=== PATIENT | female | born 1930 | race Caucasian/White ===

== ENCOUNTER 2018-03-09 14:18 | Observation (INO) ==
[2018-03-09 14:53] LABS: Basophils % 0.3 %; Eosinophils # 0.1 K/mcL (0.0-0.6); Eosinophils % 3.2 %; Hematocrit 35.6 % (35.3-44.9); Immature Granulocytes % 0.6 % (0-4); Immature Platelets 2.3 % (1.1-6.1); Lymphocytes # 0.7 K/mcL (0.6-4.6); Lymphocytes % 21.1 %; Mean Corpuscular HGB Conc 30.9 g/dL (31.6-35.5); Mean Corpuscular Hemoglobin 32.5 pg (28.0-33.3); Mean Corpuscular Volume 105.3 fL (83.0-100.0); Mean Platelet Volume 10.4 fL (9.4-12.4); Monocytes # 0.2 K/mcL (0.0-1.3); Monocytes % 6.9 %; Neutrophils # 2.2 K/mcL (1.6-8.9); Red Blood Count 3.38 M/mcL (3.82-4.97); Red Cell Distribution Width 14.8 % (11.5-14.5); Segmented Neutrophils % 67.9 %
--- NOTE | 2018-03-09 15:00 | Emergency Department Note ---
Disposition Clinical Impression: Atypical chest pain Disposition: Admitted As Inpatient Condition: Fair Time of Disposition: 16:30 Chest Pain HPI - General Chief Complaint: ED Chest Pain Stated Complaint: Chest pain Time Seen by Provider: 03/09/18 14:27 Source: patient, family Mode of arrival: ambulatory Limitations: no limitations Vital Signs Reviewed: Yes Nursing Notes Reviewed: Yes - History of Present Illness HPI Narrative: 88-year-old female past medical history A fib, CAD, [place] x6 stents, diabetes, CHF , CKD, GERD presented to [facility] complaining of chest pain. She reported that the chest pain began on Monday after eating a sandwich. She describes it as a dull pain in the center of her chest that is not radiating. It is exacerbated by eating and swallowing liquids, it is intermittent lasting up to 15 minutes after eating or just when it randomly occurs. She went to [facility] [place] and was admitted for observation overnight then discharged the next day and told that she had inflammation. The pain has continued to worsen and not improve. She has had shortness of breath. She denies fever, chills, trauma, abdominal pain, nausea, vomiting, change in vision , melena, diarrhea, hematechezia. She denied smoking, drinking, drug use. She has not had an EGD. She is up today on colonoscopy. Severity scale (1-10): 6 - Related Data Home Medications Medication Instructions Recorded Confirmed Atorvastatin [Lipitor] 40 mg PO HS 01/25/16 03/09/18 Carvedilol [Coreg] 25 mg PO BID 01/25/16 03/09/18 Clopidogrel [Plavix] 75 mg PO DAILY 01/25/16 03/09/18 Glimepiride [Amaryl] 1 mg PO DAILY 01/25/16 03/09/18 Isosorbide MONOnitrate [Isosorbide 120 mg PO DAILY 01/25/16 03/09/18 Mononitrate ER] Omeprazole [PriLOSEC] 20 mg PO DAILY 01/25/16 03/09/18 Potassium Chloride [Klor-Con] 20 meq PO DAILY 01/25/16 03/09/18 SitaGLIPtin [Januvia] 100 mg PO DAILY 01/25/16 03/09/18 Aspirin [Lo-Dose Aspirin EC] 81 mg PO QAM 11/18/16 06/08/18 HYDROcodone/Acet 5/325 mg [[place] 1 tab PO Q6H PRN 08/19/16 03/09/18 5-325 mg] Digoxin [Lanoxin] 0.125 mg PO Q48H 06/19/17 03/09/18 Previous Rx's Medication Instructions Recorded Folic Acid 1 mg PO DAILY #30 tablet 10/25/16 Torsemide [Demadex] 40 mg PO DAILY 365 Days tablet 11/24/16 Cyanocobalamin (B-12) [Vitamin B12] 1,000 mcg PO DAILY #90 tablet 11/03/17 Allergies Allergy/AdvReac Type Severity Reaction Status Date / Time cephalexin [From Keflex] AdvReac See Verified 03/06/18 10:32 Comments Constitutional: Denies: fever, chills Cardiovascular: Reports: chest pain Respiratory: Reports: dyspnea. 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 Absent: tenderness, rash - Respiratory Respiratory exam: Present: other (Rales b/l). Absent: respiratory distress - Cardiovascular Cardiovascular exam: Present: irregular rhythm - Abdominal Exam Abdominal exam: Present: soft, Non-Tender, normal bowel sounds - Expanded Lower Extremity Exam Lower leg exam: Present: tenderness, swelling. Absent: erythema - Back Exam Back exam: Present: normal inspection - Neurological Exam Neurological exam: Present: alert, oriented X3 - Psychiatric Psychiatric exam: Present: normal affect, normal mood - Skin Skin exam: Present: dry, intact Course Course Narrative: 88-year-old female past medical history A fib, CAD, AR x6 stents, diabetes, CHF , CKD, GERD presented to [facility] complaining of chest pain. It is exacerbated by eating food and swallowing liquids. Pain is located in the center for chest without radiation. It is intermittent and lasts up to 15 minutes. The dull chest pain kept her up all night long and she was unable to sleep. Admits shortness of breath. Denied fever, chills, trauma , wheezing, cough, abdominal pain with nausea, vomiting, melena. Differential includes ACS, CHF exacerbation, pneumonia, dysphagia. Symptoms are likely not anginal. Border CBC, BMP, hepatic panel, lipase, EKG, troponin, chest x-ray. - Reevaluation(s) Reevaluation #1: The patient reports that her chest pain has resolved. Her CBC, BMP, troponin or unremarkable. Her hemoglobin and creatinine is at baseline. Time: 16:07 Vital Signs Temperature 97.9 F 03/09/18 14:26 Pulse Rate 85 03/09/18 14:26 Respiratory Rate 16 03/09/18 14:26 Blood Pressure 115/66 03/09/18 14:26 O2 Sat by Pulse Oximetry 95 03/09/18 14:26 Temperature 97.9 F 03/09/18 17:15 Pulse Rate 75 03/09/18 17:15 Respiratory Rate 20 03/09/18 17:15 Blood Pressure 131/79 03/09/18 17:15 O2 Sat by Pulse Oximetry 97 03/09/18 17:15 Oxygen Delivery Oxygen Delivery Room Air Chest Pain - MDM Narrative Medical decision making narrative: 88-year-old female past medical history A fib, CAD, AR x6 stents, diabetes, CHF , CKD, GERD presented to [facility] complaining of chest pain. She reported that the chest pain began on Monday after eating a sandwich. She describes it as a dull pain in the center of her chest that is not radiating. It is exacerbated by eating and swallowing liquids, it is intermittent lasting up to 15 minutes after eating or just when it randomly occurs. She went to [facility] [place] and was admitted for observation overnight then discharged the next day and told that she had inflammation. The pain has continued to worsen and not improve. She has had shortness of breath. She denies fever, chills, trauma, abdominal pain, nausea, vomiting, change in vision , melena, diarrhea, hematechezia. She has not had an EGD. She is up today on colonoscopy. The chest pain is non-anginal and is more likely dysphagia. We considered pneumonia, ACS, pancreatitis, cholecystitis. However due to the following lab work those diagnosis were less likely. EKG demonstrated atrial fibrillation with no acute ischemia. Troponin, BMP, hepatic panel, lipase unremarkable. CKD and anemia is at baseline. Chest x-ray demonstrated small bilateral pleural effusion. The patient was given nitro and Lasix. Patient was hemodynamically stable and afebrile. The hospitalist accepted admission. Dr. Connell of general surgery was consulted about possible EGD and he requested a CT chest be ordered. The patient is alert and oriented in is agreeable to admission. She stated a clear understanding of the treatment and plan. - Differential Diagnosis Likely: stable angina, unstable angina pectoris, atypical chest pain, chest pain , biliary colic - Medical Records Medical records reviewed: Yes I reviewed the patient's medical records. - Lab Data Lab results reviewed: Yes I reviewed the patient's lab results. Result diagrams: 03/09/18 15:00 03/09/18 15:00 - Radiology Data Chest X-Ray 03/09/18 14:34 IMPRESSION: Cardiomegaly with progressing left effusion and stable small right pleural effusion. D/ / 03/09/2018 15:05:02 Tano Truong MD / Karen Wagner Interpreting Provider: Tano Truong MD - EKG Data EKG attestation: Yes I reviewed and interpreted this EKG. EKG results narrative: EKG demonstrated atrial fibrillation, normal axis, no acute ST changes. QRS 91, QT/QTC 360/409 Heart Score - Score History: Slightly Suspicious EKG: Normal Age: Greater than 65 Risk Factors: Equal/Greater than 3 risk factor or history of atherosclerotic disease Troponin: Less than normal limit HEART Score Total: 4 Critical Care Time Critical Care Time: No
[2018-03-09 15:02] LABS: INR 1.2; Prothrombin Time 13.3 Seconds (9.4-12.1)
[2018-03-09 15:05] LABS: Activated Partial Thrombo Time 32.9 Seconds (26.0-36.0)
[2018-03-09 15:05] LABS: Platelet Count 97 K/mcL (140-400)
[2018-03-09] MEDS ORDERED: Aspirin 81 MG TAB.CHEW PO ONE (15:10)
[2018-03-09 15:11] LABS: BUN/Creatinine Ratio 18 (6-26); Blood Urea Nitrogen 23 mg/dL (8-23); Calcium 9.6 mg/dL (8.6-10.3); Carbon Dioxide 29 mEq/L (23-29); Chloride 104 mEq/L (98-107); Digoxin 0.5 ng/mL (0.8-2.0); Glucose 198 mg/dL (70-105); Osmolality,Calculated 299 (280-300); Potassium 4.2 mEq/L (3.5-5.1); Sodium 140 mEq/L (136-145); eGFR For African Americans 47 (> 60); eGFR For Non-African Americans 39 (> 60)
[2018-03-09] MEDS ORDERED: Furosemide 20 MG/2 ML VIAL IVP ONE (15:12)
[2018-03-09] MEDS ORDERED: Nitroglycerin 0.4 MG TAB.SUBL SL ONE (15:12)
[2018-03-09 15:19] LABS: Troponin I < 0.03 ng/mL (< 0.04)
[2018-03-09 15:28] LABS: Alanine Aminotransferase 9 Units/L (7-52); Albumin 3.9 g/dL (3.5-5.7); Albumin/Globulin Ratio 1.6 (1.1-2.2); Alkaline Phosphatase 83 Units/L (34-104); Aspartate Amino Transferase 14 Units/L (13-39); Bilirubin,Direct 0.1 mg/dL (0.0-0.2); Bilirubin,Indirect 0.6 mg/dL (0.0-1.2); Bilirubin,Total 0.7 mg/dL (0.3-1.0); Globulin 2.5 g/dL (2.4-3.5); Lipase 17 Units/L (11-82); Total Protein 6.4 g/dL (6.4-8.9)
[2018-03-09] MEDS ORDERED: Ondansetron 4 MG/2 ML VIAL IVP PRN (17:20)
[2018-03-09] MEDS ORDERED: *HR* Promethazine 25 MG/ML VIAL IVP PRN (17:20)
[2018-03-09] MEDS ORDERED: *HR* HYDROcodone/Acet 5/325 mg TABLET PO PRN (17:20)
[2018-03-09] MEDS ORDERED: Naloxone 0.4 MG/ML INJ IVP PRN (17:20)
[2018-03-09] MEDS ORDERED: Acetaminophen 325 MG TABLET PO PRN (17:20)
[2018-03-09] MEDS ORDERED: *HR* Digoxin 0.125 MG TABLET PO SCH (17:30)
--- NOTE | 2018-03-09 17:32 | Internal Med History&Physical ---
Date of Encounter: 03/09/18 Time of Encounter: 16:20 Internal Medicine - H&P: HPI Chief complaint: Chest tightness, dysphagia Admitted From: Emergency Dept Plans for Post Hospital Care: Home History of present illness: Ms. Kang is a 88 year old femalepast medical history of chronic A fib, CAD, [place] x6 stents, diabetes, Systolic CHF, CKD-3, and GERD pt presented to ER complaining of chest tightness since y/d and difficulty to sallow. She reported that the chest pain began after eating a sandwich. She describes it as a dull pain in the center of her chest that is not radiating. It is exacerbated by eating and swallowing liquids, it is intermittent lasting up to 15 minutes after eating or just when it randomly occurs. She went to [facility] and was admitted for observation overnight then discharged the next day and told that she had inflammation. The pain has continued to worsen and not improve. She also c/o shortness of breath and worsening b/l LE edema. Her chest x-ray showed increasing left pleural effusion. She denies fever, chills, trauma, abdominal pain, nausea, vomiting, change in vision, melena, diarrhea, hematechezia. She never had an EGD Past Med Surg Social Fam HX - Past Medical History Medical history: atrial fibrillation, CHF, diabetes, hyperlipidemia, hypertension, myocardial infarction Psychiatric history: anxiety - Past Surgical History Surgical History: angioplasty/stent, cholecystectomy, hysterectomy, other Additional surgical history: Back surgery. Cardiac Stents x 6 - Social History Smoking Status: Never smoker Smokeless Tobacco Status: No Alcohol use: none Drug use: none - Family History Sister Adopted: No Family Member Ethnicity: Non- Living Status: Still Living Hx Family Cardiac Disorders: Yes Hx Family Respiratory Disorders: No Hx Family Cancer: No Hx Family GI Disorders: No Hx Family Endocrine Disorder: No Hx Family Neuromuscular Disorders: No Hx Family Neurologic Disorders: No Hx Family HEENT Disorders: No Hx Family Autoimmune Disorders: No Internal Medicine - H&P: Meds Atorvastatin [Lipitor] 40 mg PO HS 01/25/16 [History] Carvedilol [Coreg] 25 mg PO BID 01/25/16 [History] Clopidogrel [Plavix] 75 mg PO DAILY 01/25/16 [History] Glimepiride [Amaryl] 1 mg PO DAILY 04/25/16 [History] Isosorbide MONOnitrate [Isosorbide Mononitrate ER] 120 mg PO DAILY 01/25/16 [ History] Omeprazole [PriLOSEC] 20 mg PO DAILY 01/25/16 [History] Potassium Chloride [Klor-Con] 20 meq PO DAILY 01/25/16 [History] SitaGLIPtin [Januvia] 100 mg PO DAILY 01/25/16 [History] Aspirin [Lo-Dose Aspirin EC] 81 mg PO QAM 08/19/16 [History] HYDROcodone/Acet 5/325 mg [[place] 5-325 mg] 1 tab PO Q6H PRN 08/19/16 [History] Folic Acid 1 mg PO DAILY #30 tablet 10/25/16 [Rx] Torsemide [Demadex] 40 mg PO DAILY 365 Days tablet 11/24/16 [Rx] Digoxin [Lanoxin] 0.125 mg PO Q48H 06/19/17 [History] Cyanocobalamin (B-12) [Vitamin B12] 1,000 mcg PO DAILY #90 tablet 11/03/17 [Rx] 3 Allergy/AdvReac Type Severity Reaction Status Date / Time cephalexin [From Keflex] AdvReac See Verified 03/06/18 10:32 Comments All Systems PM: A 10-system review of systems was performed and is negative for pertinent findings except as documented above in the HPI. Review of systems: All the systems are reviewed everything is benign except the systems and symptoms I mentioned in the history of present illness - Constitutional Vitals: Temp Pulse Resp BP Pulse Ox 97.9 F 75 20 131/79 97 03/09/18 17:15 03/09/18 17:15 03/09/18 17:15 03/09/18 17:15 03/09/18 17:15 General appearance: Present: cooperative, A&O X 3, no acute distress, answers questions appropriately - Head Head exam: Present: atraumatic, normal inspection - Neck Neck exam general surgery: Present: supple - Respiratory Respiratory exam: Present: decreased breath sounds. Absent: rales, respiratory distress, rhonchi, wheezes - Cardiovascular Cardiovascular exam: Present: irregular rhythm, +S1, +S2. Absent: tachycardia - GI/Abdominal GI/Abdominal exam: Present: normal bowel sounds, soft. Absent: distended, rebound, rigid, tenderness - Extremities Exam Extremities exam: Present: pedal edema (2-3+). Absent: calf tenderness, tenderness - Back Exam Back exam: Absent: CVA tenderness (L), CVA tenderness (R) - Neurological Exam Neurological exam: Present: alert, oriented X3 - Psychiatric Psychiatric exam: Present: normal affect, normal mood Internal Med - H&P Results - Labs CBC & Chem 7: 03/09/18 15:00 03/09/18 15:00 - Impressions ITS Impressions Chest CT 03/09/18 16:15 IMPRESSION: Small left and very small right pleural effusions with mild adjacent airspace disease, likely atelectasis. Bronchial wall thickening, compatible with acute and/or chronic bronchitis. Enlargement all all the cardiac chambers. Small pericardial effusion. Small hiatal hernia. D/ / Darrick Vasquez MD / Darrick Vasquez MD Interpreting Provider: Darrick Vasquez MD - Assessment and plan (1) Acute on chronic systolic (congestive) heart failure Current Visit: Yes Status: Acute Assessment and plan: Her symptoms consistent with the mild systolic CHF exacerbation chest x-ray showing progressive left pleural effusion she does have severe bilateral lower extremity edema started on IV Lasix 20 b.i.d. continue close monitoring reviewed her Echo from 07/2017 showed EF 40% resumed all her home medications (2) Dysphagia Current Visit: Yes Status: Acute Assessment and plan: Her symptoms suggesting of esophageal stricture she would get benefit with EGD surgeon Dr. Connell was already consulted by ER he requested for CT of abdomen NPO after midnight Qualifiers: Dysphagia type: oropharyngeal phase Qualified Code(s): R13.12 - Dysphagia, oropharyngeal phase (3) Atypical chest pain Current Visit: Yes Status: Acute Assessment and plan: Her chest pain seems to most likely due to CHF exacerbation as well as with the dysphagia will place on the burning supervisor check serial troponin so far negative troponin no acute ischemic changes noticed on EKG continue aspirin, Plavix and beta daryn (4) Lower extremity edema Current Visit: No Status: Acute Assessment and plan: Mostly due to CHF on IV diuresis (5) Atrial fibrillation Current Visit: No Status: Chronic Assessment and plan: Rate controlled with the coreg and digoxin Qualifiers: Atrial fibrillation type: chronic Qualified Code(s): I48.2 - Chronic atrial fibrillation (6) CKD (chronic kidney disease) stage 3, GFR 30-59 ml/min Current Visit: No Status: Chronic Assessment and plan: Stable and baseline (7) DM type 2 (diabetes mellitus, type 2) Current Visit: No Status: Chronic Assessment and plan: ADA diet on insulin sliding scale Qualifiers: Diabetes mellitus complication status: with kidney complications Diabetes mellitus complication detail: with chronic kidney disease Chronic kidney disease stage: stage 3 (moderate) Qualified Code(s): E11.22 - Type 2 diabetes mellitus with diabetic chronic kidney disease; N18.3 - Chronic kidney disease, stage 3 (moderate) (8) Pancytopenia Current Visit: No Status: Chronic Assessment and plan: Due to MDS stable numbers (9) MDS (myelodysplastic syndrome) Current Visit: No Status: Suspected - Time Spent With Patient Total time spent is greater than 50% in coordination of care (as documented) at patient's floor/unit and/or counseling patient:
--- NOTE | 2018-03-09 17:56 | General Surgery Consult Note ---
Date of Encounter: 03/09/18 Time of Encounter: 17:55 Assessment and Plan (1) Odynophagia Current Visit: Yes Status: Acute I explained to the patient given her overall symptoms I think it would be reasonable to consider performing an EGD tomorrow with MAC. MAC is requested due to the patient's current medications and comorbidities. The patient agrees to the above plan. History of Present Illness Consult date: 03/09/18 Reason for consult: other (Pain with swallowing) Requesting physician: Elly Bravo History of present illness: The patient is an 88 year old female with a past medical history significant for diabetes mellitus, coronary artery disease, CHF, myocardial infarction, and hypertension who states that she has been having pain with swallowing since Monday. She states that when she was trying to swallow water she started having this similar chest pain/discomfort. She states that food also cause this pain episodic in nature. She denies any nausea or vomiting and does have a history of heartburn but states that this is not heartburn related symptoms. She is on medications for heartburn/reflux and states that the medication does relieve her symptoms. Because of her continued discomfort she presented to [facility] for further evaluation. Colonoscopy in the past but has never had an EGD. Past Med Surg Social Fam HX - Past Medical History Medical history: atrial fibrillation, CHF, diabetes, hyperlipidemia, hypertension, myocardial infarction Psychiatric history: anxiety - Past Surgical History Surgical History: angioplasty/stent, cholecystectomy, hysterectomy, other Additional surgical history: Back surgery. Cardiac Stents x 6 - Social History Smoking Status: Never smoker Smokeless Tobacco Status: No Alcohol use: none Drug use: none - Family History Sister Adopted: No Family Member Ethnicity: Non- Living Status: Still Living Hx Family Cardiac Disorders: Yes Hx Family Respiratory Disorders: No Hx Family Cancer: No Hx Family GI Disorders: No Hx Family Endocrine Disorder: No Hx Family Neuromuscular Disorders: No Hx Family Neurologic Disorders: No Hx Family HEENT Disorders: No Hx Family Autoimmune Disorders: No Medications and Allergies Atorvastatin [Lipitor] 40 mg PO HS 01/25/16 [History] Carvedilol [Coreg] 25 mg PO BID 01/25/16 [History] Clopidogrel [Plavix] 75 mg PO DAILY 01/25/16 [History] Glimepiride [Amaryl] 1 mg PO DAILY 01/25/16 [History] Isosorbide MONOnitrate [Isosorbide Mononitrate ER] 120 mg PO DAILY 01/25/16 [ History] Omeprazole [PriLOSEC] 20 mg PO DAILY 01/25/16 [History] Potassium Chloride [Klor-Con] 20 meq PO DAILY 01/25/16 [History] SitaGLIPtin [Januvia] 100 mg PO DAILY 01/25/16 [History] Aspirin [Lo-Dose Aspirin EC] 81 mg PO QAM 08/19/16 [History] HYDROcodone/Acet 5/325 mg [[place] 5-325 mg] 1 tab PO Q6H PRN 08/19/16 [History] Folic Acid 1 mg PO DAILY #30 tablet 10/25/16 [Rx] Torsemide [Demadex] 40 mg PO DAILY 365 Days tablet 11/24/16 [Rx] Digoxin [Lanoxin] 0.125 mg PO Q48H 06/19/17 [History] Cyanocobalamin (B-12) [Vitamin B12] 1,000 mcg PO DAILY #90 tablet 11/03/17 [Rx] 3 Allergy/AdvReac Type Severity Reaction Status Date / Time cephalexin [From Keflex] AdvReac See Verified 03/06/18 10:32 Comments Review of Systems All systems PM: The remainder of the systems were reviewed and are negative General Surgery Exam Initial Vital Signs Temp Pulse Resp BP Pulse Ox 97.9 F 85 16 115/66 95 03/09/18 14:26 03/09/18 14:26 03/09/18 14:26 03/09/18 14:03/09/18 14:26 - General physical appearance well nourished, no distress - Respiratory normal expansion, normal respiratory effort, clear to percussion - Cardiovascular Cardiovascular exam: Present: RRR, no murmurs/rubs/gallops - Abdomen Abdomen general surgery: Present: bowel sounds present, soft, non tender - Neurologic Present: CN 2-12 grossly intact Exam Initial Vital Signs Temp Pulse Resp BP Pulse Ox 97.9 F 85 16 115/66 95 03/09/18 14:26 03/09/18 14:26 03/09/18 14:26 03/09/18 14:26 03/09/18 14:26 Results - Labs 03/09/18 15:00 03/09/18 15:00 Abnormal lab results WBC 3.2 K/mcL (4.3-11.1) L D 03/09/18 15:00 RBC 3.38 M/mcL (3.82-4.97) L 03/09/18 15:00 Hgb 11.0 g/dL (11.5-15.4) L 03/09/18 15:00 MCV 105.3 fL (83.0-100.0) H 03/09/18 15:00 MCHC 30.9 g/dL (31.6-35.5) L 03/09/18 15:00 RDW 14.8 % (11.5-14.5) H 03/09/18 15:00 Plt Count 97 K/mcL (140-400) L 03/09/18 15:00 PT 13.3 Seconds (9.4-12.1) H 03/09/18 14:34 Creatinine 1.29 mg/dL (0.60-1.20) H 03/09/18 15:00 Est GFR ( Amer) 47 (> 60) L 03/09/18 15:00 Est GFR (Non-Af Amer) 39 (> 60) L 03/09/18 15:00 Glucose 198 mg/dL (70-105) H 03/09/18 15:00 B-Natriuretic Peptide 268 pg/mL (Less than 100) H 03/09/18 15:00 Digoxin 0.5 ng/mL (0.8-2.0) L 03/09/18 15:00 All other labs normal. Consult Discharge Plan - Plan Instructions: Chest Pain (ED) Referrals: Tangela Prieto, PHUONG [Primary Care Provider] -
--- NOTE | 2018-03-09 18:07 | Emergency Department Note ---
Disposition Clinical Impression: Atypical chest pain Disposition: Admitted As Inpatient Condition: Fair General Adult HPI - General Chief complaint: ED Chest Pain Stated complaint: Chest pain Time Seen by Provider: 03/09/18 14:27 Source: patient, family Mode of arrival: ambulatory Limitations: no limitations - History of Present Illness Pain Scale: 6 - Related Data Home Medications Medication Instructions Recorded Confirmed Atorvastatin [Lipitor] 40 mg PO HS 01/25/16 03/09/18 Carvedilol [Coreg] 25 mg PO BID 01/25/16 03/09/18 Clopidogrel [Plavix] 75 mg PO DAILY 01/25/16 03/09/18 Glimepiride [Amaryl] 1 mg PO DAILY 01/25/16 03/09/18 Isosorbide MONOnitrate [Isosorbide 120 mg PO DAILY 01/25/16 03/09/18 Mononitrate ER] Omeprazole [PriLOSEC] 20 mg PO DAILY 01/25/16 03/09/18 Potassium Chloride [Klor-Con] 20 meq PO DAILY 01/25/16 03/09/18 SitaGLIPtin [Januvia] 100 mg PO DAILY 01/25/16 03/09/18 Aspirin [Lo-Dose Aspirin EC] 81 mg PO QAM 08/19/16 03/09/18 HYDROcodone/Acet 5/325 mg [[place] 1 tab PO Q6H PRN 08/19/16 03/09/18 5-325 mg] Digoxin [Lanoxin] 0.125 mg PO Q48H 06/19/17 03/09/18 Previous Rx's Medication Instructions Recorded Folic Acid 1 mg PO DAILY #30 tablet 10/25/16 Torsemide [Demadex] 40 mg PO DAILY 365 Days tablet 11/24/16 Cyanocobalamin (B-12) [Vitamin B12] 1,000 mcg PO DAILY #90 tablet 11/03/17 Allergies Allergy/AdvReac Type Severity Reaction Status Date / Time cephalexin [From Keflex] AdvReac See Verified 03/06/18 10:32 Comments Constitutional: Denies: fever, chills Cardiovascular: Reports: chest pain Respiratory: Reports: dyspnea. Denies: cough, wheezes Gastrointestinal: Denies: abdominal pain, nausea, vomiting, melena Integumentary: Denies: rash Neurological: Denies: headache Past Medical History - Past Medical History Medical history: Reports: atrial fibrillation, CHF, diabetes, hyperlipidemia, hypertension, myocardial infarction Surgical history: Reports: angioplasty/stent, cholecystectomy, hysterectomy, other Psychiatric history: Reports: anxiety FAGOT MAKER history: Reports: no FAGOT MAKER history - Social History Smoking Status: Never smoker Smokeless Tobacco Status: No Alcohol use: Reports: none Drug use: Reports: none Physical Exam - General Limitations: no limitations General appearance: alert, in no apparent distress Course Vital Signs Temperature 97.9 F 03/09/18 14:26 Pulse Rate 85 03/09/18 14:26 Respiratory Rate 16 03/09/18 14:26 Blood Pressure 115/66 03/09/18 14:26 O2 Sat by Pulse Oximetry 95 03/09/18 14:26 Temperature 97.9 F 03/09/18 17:15 Pulse Rate 75 03/09/18 17:15 Respiratory Rate 20 03/09/18 17:15 Blood Pressure 131/79 03/09/18 17:15 O2 Sat by Pulse Oximetry 97 03/09/18 17:15 Oxygen Delivery Oxygen Delivery Room Air Medical Decision Making - Lab Data Result diagrams: 03/09/18 15:00 03/09/18 15:00 Lab Results 03/09/18 03/09/18 03/09/18 Range/Units 14:34 15:00 15:00 WBC 3.2 L D (4.3-11.1) K/mcL RBC 3.38 L (3.82-4.97) M/mcL Hgb 11.0 L (11.5-15.4) g/dL Hct 35.6 (35.3-44.9) % MCV 105.3 H (83.0-100.0) fL MCH 32.5 (28.0-33.3) pg MCHC 30.9 L (31.6-35.5) g/dL RDW 14.8 H (11.5-14.5) % Plt Count 97 L (140-400) K/mcL MPV 10.4 (9.4-12.4) fL Immature Gran % 0.6 (0-4) % Seg Neutrophils % 67.9 % Lymphocytes % 21.1 % Monocytes % 6.9 % Eosinophils % 3.2 % Basophils % 0.3 % Neutrophils # 2.2 (1.6-8.9) K/mcL Lymphocytes # 0.7 (0.6-4.6) K/mcL Monocytes # 0.2 (0.0-1.3) K/mcL Eosinophils # 0.1 (0.0-0.6) K/mcL Basophils # 0.0 (0.0-0.2) K/mcL Immature Plt Fraction 2.3 (1.1-6.1) % PT 13.3 H (9.4-12.1) Seconds INR 1.2 APTT 32.9 (26.0-36.0) Seconds Sodium 140 (136-145) mEq/L Potassium 4.2 (3.5-5.1) mEq/L Chloride 104 (98-107) mEq/L Carbon Dioxide 29 (23-29) mEq/L BUN 23 (8-23) mg/dL Creatinine 1.29 H (0.60-1.20) mg/dL Est GFR ( Amer) 47 L (> 60) Est GFR (Non-Af Amer) 39 L (> 60) BUN/Creatinine Ratio 18 (6-26) Glucose 198 H (70-105) mg/dL Calculated Osmolality 299 (280-300) Calcium 9.6 (8.6-10.3) mg/dL Total Bilirubin 0.7 (0.3-1.0) mg/dL Direct Bilirubin 0.1 (0.0-0.2) mg/dL Indirect Bilirubin 0.6 (0.0-1.2) mg/dL AST 14 (13-39) Units/L ALT 9 (7-52) Units/L Alkaline Phosphatase 83 (34-104) Units/L Troponin I < 0.03 (< 0.04) ng/mL B-Natriuretic Peptide (Less than 100) pg/mL Serum Total Protein 6.4 (6.4-8.9) g/dL Albumin 3.9 (3.5-5.7) g/dL Globulin 2.5 (2.4-3.5) g/dL Albumin/Globulin Ratio 1.6 (1.1-2.2) Lipase 17 (11-82) Units/L Digoxin 0.5 L (0.8-2.0) ng/mL 03/09/18 Range/Units 15:00 WBC (4.3-11.1) K/mcL RBC (3.82-4.97) M/mcL Hgb (11.5-15.4) g/dL Hct (35.3-44.9) % MCV (83.0-100.0) fL MCH (28.0-33.3) pg MCHC (31.6-35.5) g/dL RDW (11.5-14.5) % Plt Count (140-400) K/mcL MPV (9.4-12.4) fL Immature Gran % (0-4) % Seg Neutrophils % % Lymphocytes % % Monocytes % % Eosinophils % % Basophils % % Neutrophils # (1.6-8.9) K/mcL Lymphocytes # (0.6-4.6) K/mcL Monocytes # (0.0-1.3) K/mcL Eosinophils # (0.0-0.6) K/mcL Basophils # (0.0-0.2) K/mcL Immature Plt Fraction (1.1-6.1) % PT (9.4-12.1) Seconds INR APTT (26.0-36.0) Seconds Sodium (136-145) mEq/L Potassium (3.5-5.1) mEq/L Chloride (98-107) mEq/L Carbon Dioxide (23-29) mEq/L BUN (8-23) mg/dL Creatinine (0.60-1.20) mg/dL Est GFR ( Amer) (> 60) Est GFR (Non-Af Amer) (> 60) BUN/Creatinine Ratio (6-26) Glucose (70-105) mg/dL Calculated Osmolality (280-300) Calcium (8.6-10.3) mg/dL Total Bilirubin (0.3-1.0) mg/dL Direct Bilirubin (0.0-0.2) mg/dL Indirect Bilirubin (0.0-1.2) mg/dL AST (13-39) Units/L ALT (7-52) Units/L Alkaline Phosphatase (34-104) Units/L Troponin I (< 0.04) ng/mL B-Natriuretic Peptide 268 H (Less than 100) pg/mL Serum Total Protein (6.4-8.9) g/dL Albumin (3.5-5.7) g/dL Globulin (2.4-3.5) g/dL Albumin/Globulin Ratio (1.1-2.2) Lipase (11-82) Units/L Digoxin (0.8-2.0) ng/mL Attestation Statement - Attestation Attestation: I examined this patient and my medical decision-making was reviewed with the Resident Physician, Dr. Oliveira. I agree with the documented findings, disposition and treatment plan as described except to the extent set forth below. Patient is an 88-year-old white female with a history of atrial fibrillation, CAD with prior IA, cardiac stent 6, who presents to the emergency room today with reports of intermittent episodes of substernal chest pressure since Monday which began after eating a sandwich. Pain is been intermittent with no aggravating or alleviating factors Time and associated with shortness of breath. Most episodes last anywhere from 10-15 minutes and resolve spontaneously. Patient denies any diaphoresis, no nausea vomiting, no abdominal pain or flank pain. Patient was seen and evaluated an outlying facility and observed overnight for symptoms being told that this was due to inflammation. Patient states the symptoms are worsening instead of getting better and presented here with ongoing complaints. I agree with patient's physical exam findings as documented. Vital signs are stable on arrival patient's in no acute distress. Shows atrial fibrillation without acute ischemia. Rate controlled. Chest x-ray shows slightly increased left pleural effusion and trace right pleural effusion no others acute process seen. Laboratory evaluation shows a normal troponin mild elevation in BNP otherwise within normal limits. Considering patient's cardiac history I feel she would benefit from admission and serial enzymes as well as possible GI evaluation as the symptoms seem related to swallowing and food ingestion. Case was discussed with hospitalist who accepted patient for admission for further evaluation and management with consultation us agreed to see the patient for possible EGD. Patient is hemodynamically stable at this time will be admitted for further management
[2018-03-09] MEDS: Furosemide 20 MG/2 ML VIAL IVP SCH (21:34)
[2018-03-10 04:46] LABS: Basophils % 0.4 %; Eosinophils % 3.2 %; Mean Corpuscular Hemoglobin 32.4 pg (28.0-33.3); Red Cell Distribution Width 14.7 % (11.5-14.5)
[2018-03-10 04:47] LABS: Eosinophils # 0.1 K/mcL (0.0-0.6); Hematocrit 32.2 % (35.3-44.9); Hemoglobin 10.1 g/dL (11.5-15.4); Immature Granulocytes % 0.4 % (0-4); Immature Platelets 2.3 % (1.1-6.1); Lymphocytes # 0.9 K/mcL (0.6-4.6); Lymphocytes % 32.4 %; Mean Corpuscular HGB Conc 31.4 g/dL (31.6-35.5); Mean Corpuscular Volume 103.2 fL (83.0-100.0); Mean Platelet Volume 10.4 fL (9.4-12.4); Monocytes # 0.2 K/mcL (0.0-1.3); Monocytes % 7.6 %; Neutrophils # 1.6 K/mcL (1.6-8.9); Red Blood Count 3.12 M/mcL (3.82-4.97)
[2018-03-10 04:53] LABS: Platelet Count 89 K/mcL (140-400)
[2018-03-10 05:00] LABS: Troponin I < 0.03 ng/mL (< 0.04)
[2018-03-10 05:02] LABS: Alanine Aminotransferase 8 Units/L (7-52); Albumin 3.5 g/dL (3.5-5.7); Albumin/Globulin Ratio 1.5 (1.1-2.2); Alkaline Phosphatase 77 Units/L (34-104); Aspartate Amino Transferase 10 Units/L (13-39); BUN/Creatinine Ratio 19 (6-26); Bilirubin,Total 0.6 mg/dL (0.3-1.0); Blood Urea Nitrogen 24 mg/dL (8-23); Calcium 9.2 mg/dL (8.6-10.3); Carbon Dioxide 28 mEq/L (23-29); Chloride 106 mEq/L (98-107); Chol/HDL Ratio 2.8 (0-4.9); Cholesterol 108 mg/dL (< 200); Globulin 2.3 g/dL (2.4-3.5); Glucose 182 mg/dL (70-105); HDL Cholesterol 38 mg/dL (40-59); LDL Cholesterol,Calculated 48 mg/dL (0-99); Magnesium 1.9 mg/dL (1.6-2.6); Osmolality,Calculated 299 (280-300); Potassium 3.7 mEq/L (3.5-5.1); Sodium 140 mEq/L (136-145); Total Protein 5.8 g/dL (6.4-8.9); Triglycerides 109 mg/dL (< 150); eGFR For African Americans 49 (> 60); eGFR For Non-African Americans 40 (> 60)
--- NOTE | 2018-03-10 07:43 | Anesthesia Evaluation PreOp ---
Date of Encounter: 03/10/18 Time of Encounter: 07:41 - Past History Planned Operation: EGD Cardiac History: NE (remote multiple), CHF (systolic), HTN, Arrhythmia (chronic a-fib), Cardiac Stent (x6) Pulmonary History: Denies Any Significant HX PEST CONTROL SPECIALIST History: Other (anxiety) Other Medical History: Renal (CKD 3), Diabetes Type II, GERD, Other (dysphagia) Alcohol Use: none Drug use: none Medications and Allergies Atorvastatin [Lipitor] 40 mg PO HS 01/25/16 [History] Carvedilol [Coreg] 25 mg PO BID 01/25/16 [History] Clopidogrel [Plavix] 75 mg PO DAILY 01/25/16 [History] Glimepiride [Amaryl] 1 mg PO DAILY 01/25/16 [History] Isosorbide MONOnitrate [Isosorbide Mononitrate ER] 120 mg PO DAILY 01/25/16 [ History] Omeprazole [PriLOSEC] 20 mg PO DAILY 01/25/16 [History] Potassium Chloride [Klor-Con] 20 meq PO DAILY 01/25/16 [History] SitaGLIPtin [Januvia] 100 mg PO DAILY 01/25/16 [History] Aspirin [Lo-Dose Aspirin EC] 81 mg PO QAM 08/19/16 [History] HYDROcodone/Acet 5/325 mg [[place] 5-325 mg] 1 tab PO Q6H PRN 08/19/16 [History] Folic Acid 1 mg PO DAILY #30 tablet 10/25/16 [Rx] Torsemide [Demadex] 40 mg PO DAILY 365 Days tablet 11/24/16 [Rx] Digoxin [Lanoxin] 0.125 mg PO Q48H 06/19/17 [History] Cyanocobalamin (B-12) [Vitamin B12] 1,000 mcg PO DAILY #90 tablet 11/03/17 [Rx] 3 Allergy/AdvReac Type Severity Reaction Status Date / Time cephalexin [From Keflex] AdvReac See Verified 03/06/18 10:32 Comments - Meds/Allergy Pre-op Review Medications Reviewed: Yes Allergies Reviewed: Yes Beta Blockers on Current Med List: Yes If Beta Blockers taken, Date/Time (Last Dose taken): 6-8 at 2135hrs Anesthesia Results - Labs 03/10/18 04:17 03/10/18 04:17 - Imaging EKG: report reviewed (ATRIAL FIBRILLATION LOW QRS VOLTAGE IN EXTREMITY LEADS INFERIOR MYOCARDIAL INFARCTION, PROBABLY OLD ANTEROSEPTAL MYOCARDIAL INFARCTION , PROBABLY OLD) Additional studies: stress: Impression: Pharmacologic stress ECG is non diagnostic for ischemia due to baseline non-specific ST and T changes. Gated EF = 47%. Small sized, moderate intensity, fixed basal to mid inferolateral defect consistent with a prior infarct. Perfusion imaging was negative for ischemia. echo: Impressions: LVEF 45%. Normal LV chamber size. Mild concentric left ventricular hypertrophy. Indeterminate diastolic function. Normal right ventricular structure and function. Severely dilated left atrium. Severely dilated right atrium. Mild-moderate aortic regurgitation. Mild-moderate mitral regurgitation. Severe tricuspid regurgitation. Severe pulmonary hypertension. Estimated RVSP is 75 mmHg. Mild pulmonic regurgitation. Anesthesia Exam Selected Entries 03/10/18 05:07 Temperature 98.4 F Pulse Rate 74 Respiratory Rate 16 Blood Pressure 142/71 O2 Sat by Pulse Oximetry 96 Oxygen Delivery Method Room Air Weight: 65kg NPO (# of Hours): 8 - HEENT Pupil (Motor): EOMI Mallampati: II Teeth: Normal Oral Opening: Greater than 3 - PEST CONTROL SPECIALIST LOC: Oriented PEST CONTROL SPECIALIST Motor: Normal RUE, Normal LUE, Normal RLE, Normal LLE, Normal Face PEST CONTROL SPECIALIST Sensory: Normal: RUE, LUE, RLE, LLE, Face - Cardiac Rhythm: Irregular Murmur: None - Pulmonary Breath Sounds: bilateral Clear (decreased) Anesthesia Assess/Plan ASA Score: 4 (heart disease) Modified Navin Scale for Level of Consciousness: Cooperative, oriented, and tranquil Anesthetic Plan: MAC Monitoring Plan: Standard Monitors Recovery Plan: PACU (agrees to MAC)
[2018-03-10] MEDS ORDERED: *HR* PHENYLEPHRINE 1,000 MCG/10 ML SYRINGE IVP ONE (08:25)
[2018-03-10] MEDS ORDERED: Propofol 500 MG/50 ML INFUS..BTL ONE (08:28)
[2018-03-10] MEDS ORDERED: Folic Acid 1 MG TABLET PO SCH (09:00)
[2018-03-10] MEDS ORDERED: Isosorbide MONOnitrate (24 HR) 60 MG TAB.ER.24H PO SCH (09:00)
[2018-03-10] MEDS ORDERED: Aspirin Enteric Coated 81 MG Tablet PO SCH (09:00)
[2018-03-10] MEDS ORDERED: *HR* Digoxin 0.125 MG TABLET PO SCH (09:00)
[2018-03-10] MEDS ORDERED: Cyanocobalamin (B-12) 1,000 MCG TABLET PO SCH (09:00)
[2018-03-10] MEDS ORDERED: Ringers Solution, Lactated 1,000 ML IVC SCH ×2 (09:15→09:38)
--- NOTE | 2018-03-10 09:22 | Event Note ---
Date of Encounter: 03/10/18 Time of Encounter: 09:22 EGD performed. Noted fibrinous exudate at the level of the distal third of the esophagus. Biopsied and brushing obtained. OK to resume diet. Add carafate. Will make certain that patient has follow up as outpatient. Will sign off; thank you.
[2018-03-10] MEDS ORDERED: Naloxone 0.4 MG/ML INJ IVP PRN (09:38)
[2018-03-10] MEDS ORDERED: Acetaminophen 325 MG TABLET PO PRN (09:38)
[2018-03-10] MEDS ORDERED: *HR* Promethazine 25 MG/ML VIAL IVP PRN (09:38)
[2018-03-10] MEDS ORDERED: *HR* HYDROcodone/Acet 5/325 mg TABLET PO PRN (09:38)
[2018-03-10] MEDS ORDERED: Ondansetron 4 MG/2 ML VIAL IVP PRN (09:38)
--- NOTE | 2018-03-10 10:11 | Internal Med Progress Note ---
Date of Encounter: 03/10/18 Time of Encounter: 10:11 - Assessment and plan (1) Acute on chronic systolic (congestive) heart failure Current Visit: Yes Status: Acute Assessment and plan: - 880 ml yesterda LE edema improved, but JVP still up and exertional dyspnea Cont IV diuresis DC jacky-procedure IV fluids (2) Dysphagia Current Visit: Yes Status: Acute Assessment and plan: EGD: fibrinous exudate at the level of the distal third of the esophagus Biopsied and brushing pending Carafate for esophagitis Qualifiers: Dysphagia type: oropharyngeal phase Qualified Code(s): R13.12 - Dysphagia, oropharyngeal phase (3) Atrial fibrillation Current Visit: No Status: Chronic Assessment and plan: cot digoxin Qualifiers: Atrial fibrillation type: chronic Qualified Code(s): I48.2 - Chronic atrial fibrillation (4) CKD (chronic kidney disease) stage 3, GFR 30-59 ml/min Current Visit: No Status: Chronic Assessment and plan: monitor (5) CAD (coronary artery disease) Current Visit: Yes Status: Chronic Assessment and plan: stable cont home meds incl Plavix Qualifiers: Coronary Disease-Associated Artery/Lesion type: [place] artery [place] vs. transplanted heart: [place] heart Associated angina: without angina Qualified Code(s): I25.10 - Atherosclerotic heart disease of [place] coronary artery without angina pectoris (6) MDS (myelodysplastic syndrome) Current Visit: No Status: Suspected Assessment and plan: pancytopenia monitor - Time Spent With Patient Total time spent is greater than 50% in coordination of care (as documented) at patient's floor/unit and/or counseling patient: - Subjective Interval history: Exertional dyspnea, far from baseline Lower chest pain No n, v, headache, dizziness - Constitutional Vitals: Temp Pulse Resp BP Pulse Ox 98.8 F 87 18 161/80 98 03/10/18 08:50 03/10/18 08:50 03/10/18 08:50 03/10/18 08:50 03/10/18 08:50 General appearance: Present: cooperative, A&O X 3, no acute distress, answers questions appropriately - Head Head exam: Present: atraumatic, normocephalic - Eye Eye exam: Present: PERRL, conjuntiva pink, sclera anicteric Pupils: Present: PERRL - Neck Neck exam general surgery: Present: supple, trachea midline. Absent: nuchal rigidity - Respiratory Respiratory exam: Present: decreased breath sounds (at bases). Absent: accessory muscle use, rales, rhonchi, wheezes - Cardiovascular Cardiovascular exam: Present: JVD (15 cm H2O), RRR, +S1, +S2. Absent: diastolic murmur, gallop, rubs, systolic murmur - GI/Abdominal GI/Abdominal exam: Present: normal bowel sounds, soft, no peritoneal signs. Absent: distended, guarding, tenderness - Extremities Exam Extremities exam: Present: pedal edema (trace), warm, radial pulses palpable and symmetrical. Absent: cyanotic - Neurological Exam Neurological exam: Present: CN II-XII intact, oriented X3, no focal deficits. Absent: facial droop, speech deficit - Skin Skin exam: Present: dry, intact Internal Medicine: Result - Labs CBC & Chem 7: 03/10/18 04:17 03/10/18 04:17 Labs: Short CBC 03/10/18 Range/Units 04:17 WBC 2.8 L (4.3-11.1) K/mcL Hgb 10.1 L (11.5-15.4) g/dL Hct 32.2 L (35.3-44.9) % Plt Count 89 L (140-400) K/mcL Neutrophils # 1.6 (1.6-8.9) K/mcL BMP 03/10/18 04:17 Sodium 140 Potassium 3.7 Chloride 106 Carbon Dioxide 28 BUN 24 H Creatinine 1.26 H Glucose 182 H Calcium 9.2 Cardiac Enzymes 03/09/18 03/10/18 Range/Units 21:42 04:17 Troponin I < 0.03 < 0.03 (< 0.04) ng/mL Liver Function 03/10/18 Range/Units 04:17 Total Bilirubin 0.6 (0.3-1.0) mg/dL AST 10 L (13-39) Units/L ALT 8 (7-52) Units/L Alkaline Phosphatase 77 (34-104) Units/L Albumin 3.5 (3.5-5.7) g/dL - ABG Interpretation ABG results: PT/INR, D-dimer PT 13.3 Seconds (9.4-12.1) H 03/09/18 14:34 - Impressions Impressions Chest CT 03/09/18 16:15 IMPRESSION: Small left and very small right pleural effusions with mild adjacent airspace disease, likely atelectasis. Bronchial wall thickening, compatible with acute and/or chronic bronchitis. Enlargement all all the cardiac chambers. Small pericardial effusion. Small hiatal hernia. D/ / Darrick Vasquez MD / Darrick Vasquez MD Interpreting Provider: Darrick Vasquez MD Consult Discharge Plan - Plan Instructions: Chest Pain (ED) Referrals: Tangela Prieto CNP [Primary Care Provider] -
[2018-03-10] MEDS: Furosemide 20 MG/2 ML VIAL IVP SCH (17:12)
[2018-03-11] MEDS: Furosemide 20 MG/2 ML VIAL IVP SCH ×2 (00:36→09:19)
[2018-03-11 06:04] LABS: Hematocrit 34.8 % (35.3-44.9); Mean Corpuscular Volume 103.6 fL (83.0-100.0); Red Blood Count 3.36 M/mcL (3.82-4.97)
[2018-03-11 06:06] LABS: Hemoglobin 10.9 g/dL (11.5-15.4); Immature Platelets 2.3 % (1.1-6.1); Mean Corpuscular HGB Conc 31.3 g/dL (31.6-35.5); Mean Corpuscular Hemoglobin 32.4 pg (28.0-33.3); Red Cell Distribution Width 14.5 % (11.5-14.5)
[2018-03-11 06:21] LABS: BUN/Creatinine Ratio 17 (6-26); Blood Urea Nitrogen 18 mg/dL (8-23); Calcium 9.3 mg/dL (8.6-10.3); Carbon Dioxide 30 mEq/L (23-29); Chloride 106 mEq/L (98-107); Glucose 213 mg/dL (70-105); Magnesium 1.9 mg/dL (1.6-2.6); Osmolality,Calculated 300 (280-300); Potassium 3.6 mEq/L (3.5-5.1); Sodium 141 mEq/L (136-145); eGFR For African Americans > 60 (> 60); eGFR For Non-African Americans 50 (> 60)
[2018-03-11 07:30] VITALS: BP 148/81
[2018-03-11] MEDS ORDERED: Aspirin Enteric Coated 81 MG Tablet PO SCH (09:00)
[2018-03-11] MEDS ORDERED: Folic Acid 1 MG TABLET PO SCH (09:00)
[2018-03-11] MEDS ORDERED: Cyanocobalamin (B-12) 1,000 MCG TABLET PO SCH (09:00)
[2018-03-11] MEDS ORDERED: Isosorbide MONOnitrate (24 HR) 60 MG TAB.ER.24H PO SCH (09:00)
--- NOTE | 2018-03-11 10:10 | Discharge Summary ---
- NOTES TO OUTPATIENT PROVIDER Notes to Outpatient Provider: please check BMP in 1 week as lisinopril started ( has appt coming Monday). 30-day script given for Pilosec and Carafate, may need longer duration Orders not resulted at time of discharge: Pending orders 03/10/18 09:09 Surgical Pathology [PTH] Routine / EGD - esophageal biopsy Date of Encounter: 03/11/18 Time of Encounter: 10:08 - Discharge Diagnosis (1) Acute on chronic systolic (congestive) heart failure Priority: Secondary Status: Resolved (2) Dysphagia Priority: Primary Status: Chronic Qualifiers: Dysphagia type: oropharyngeal phase Qualified Code(s): R13.12 - Dysphagia, oropharyngeal phase (3) Atrial fibrillation Priority: Secondary Status: Chronic Qualifiers: Atrial fibrillation type: chronic Qualified Code(s): I48.2 - Chronic atrial fibrillation (4) CKD (chronic kidney disease) stage 3, GFR 30-59 ml/min Priority: Secondary Status: Chronic (5) CAD (coronary artery disease) Priority: Secondary Status: Chronic Qualifiers: Coronary Disease-Associated Artery/Lesion type: [place] artery [place] vs. transplanted heart: [place] heart Associated angina: without angina Qualified Code(s): I25.10 - Atherosclerotic heart disease of [place] coronary artery without angina pectoris (6) MDS (myelodysplastic syndrome) Priority: Secondary Status: Suspected Hospital course: 88W with chronic A fib, CAD, [place] x6 stents, diabetes, Systolic CHF, CKD-3, and GERD presented to ER due to chest tightness which started after eating a sandwich. Non-radiating, with dysphagia. She also had exertional dyspnea. # Chest pain - likely due to esophagitis - ACS ruled out with troponin, chest pain pain improved after EGD and Carafate. No n, v, abd pain on discharge day # Esophagitis: - EGD: fibrinous exudate at the level of the distal third of the esophagus - Prilosec increased to BID and Carafate started, 30-d supply prescribed for now # ADHF / HFrEF - She was volume up on exam, treated with IV lasix, and euvolemic on the day of discharge - TTE showed EF 30-35%, previously 40-45% in 2017; this was in the setting of acute illness and pain, jacky-procedure EGD - Torsemide continued on discharge - Lisinoprl started for HFrEF (not allergic to it), CKD but Cr 1.0 on discharge , check BMP in 1 week - She has appt with her manager statistical programming in 2 weeks, will discuss there regarding further work up, may need a MUGA once on GDMT Other medical problems remained stable on home medicines Discharge discussed with: patient - Time Spent with Patient Total time spent providing and/or coordinating discharge services: Greater than 30 minutes Specific discharge activities: Counseled about HFrEF, lsinopril, risk of angioedema, hyperkalemia, ERICA - Discharge Medications Prescriptions: Lisinopril [Zestril] 5 mg PO DAILY 30 Days #30 tablet Omeprazole [PriLOSEC] 20 mg PO BIDAC 30 Days #60 capsule. Sucralfate [Carafate] 1 gm PO QIDAC 30 Days #120 udc Home Medications: Atorvastatin [Lipitor] 40 mg PO HS 01/25/16 [History] Carvedilol [Coreg] 25 mg PO BID 01/25/16 [History] Clopidogrel [Plavix] 75 mg PO DAILY 01/25/16 [History] Glimepiride [Amaryl] 1 mg PO DAILY 01/25/16 [History] Isosorbide MONOnitrate [Isosorbide Mononitrate ER] 120 mg PO DAILY 01/25/16 [ History] Potassium Chloride [Klor-Con] 20 meq PO DAILY 01/25/16 [History] SitaGLIPtin [Januvia] 100 mg PO DAILY 01/25/16 [History] Aspirin [Lo-Dose Aspirin EC] 81 mg PO QAM 08/19/16 [History] HYDROcodone/Acet 5/325 mg [[place] 5-325 mg] 1 tab PO Q6H PRN 08/19/16 [History] Folic Acid 1 mg PO DAILY #30 tablet 10/25/16 [Rx] Torsemide [Demadex] 40 mg PO DAILY 365 Days tablet 11/24/16 [Rx] Digoxin [Lanoxin] 0.125 mg PO Q48H 06/19/17 [History] Cyanocobalamin (B-12) [Vitamin B12] 1,000 mcg PO DAILY #90 tablet 11/03/17 [Rx] Lisinopril [Zestril] 5 mg PO DAILY 30 Days #30 tablet 03/11/18 [Rx] Omeprazole [PriLOSEC] 20 mg PO BIDAC 30 Days #60 capsule. 03/11/18 [Rx] Sucralfate [Carafate] 1 gm PO QIDAC 30 Days #120 udc 03/11/18 [Rx] Allergies/Adverse Reactions: 3 Allergy/AdvReac Type Severity Reaction Status Date / Time cephalexin [From Keflex] AdvReac See Verified 03/06/18 10:32 Comments Date of admission: 03/09/18 15:54 Primary care physician: Tangela Prieto CNP Consults: 03/09/18 16:15 Consult to Surgery [CONS] Routine Consulting Provider: [facility] Reason for Consult: Chest pain/dysphagia Call Completed: Yes Discharging clinician: Piter Lugo Anticipated date of discharge: 03/11/18 - Constitutional Vitals: Temp Pulse Resp BP Pulse Ox 99.0 F 78 18 148/81 97 03/11/18 07:26 03/11/18 07:26 03/11/18 07:26 03/11/18 07:26 03/11/18 09:23 General appearance: Present: cooperative, A&O X 3, no acute distress, answers questions appropriately - Head Head exam: Present: atraumatic, normocephalic - Eye Eye exam: Present: PERRL, conjuntiva pink, sclera anicteric Pupils: Present: PERRL - Neck Neck exam general surgery: Present: supple, trachea midline. Absent: nuchal rigidity - Respiratory Respiratory exam: Present: CTAB. Absent: accessory muscle use, rales, rhonchi, wheezes - Cardiovascular Cardiovascular exam: Present: irregular rhythm, +S1, +S2. Absent: diastolic murmur, gallop, JVD, rubs, systolic murmur - GI/Abdominal GI/Abdominal exam: Present: normal bowel sounds, soft, no peritoneal signs. Absent: distended, tenderness - Extremities Exam Extremities exam: Present: warm, radial pulses palpable and symmetrical. Absent : calf tenderness, cyanotic, pedal edema - Neurological Exam Neurological exam: Present: CN II-XII intact, oriented X3, no focal deficits. Absent: facial droop, speech deficit - Skin Skin exam: Present: dry, intact - Patient Status Disposition: Home, Self-Care Condition: Fair Functional capacity at discharge: independent ambulation Overall status at discharge: patient is back to baseline - Discharge Instructions Instructions: Corrosive Esophagitis (DC), Lisinopril (By mouth) Follow Up With: Tangela Prieto CNP [Primary Care Provider] - - Diet and Activity Activity: increase activity as tolerated Diet: advance to your usual diet, diabetic diet, low salt diet, other (fluid restriciton 1500 ml per day)
--- NOTE | 2018-03-12 07:56 | Electrocardiograph Report ---
[address] [place] [address] Test Date: 2018-03-09 Pat Name: Jorge Kang Department: 102 Room: 3B66 Gender: F Workers Compensation Claims Specialist: Declan : [id number] Requested By: Sandro Wyman Order Number: [id number] Reading MD: Atif Russo Measurements Intervals [place] Rate: 91 P: [place]: 0 QRS: -4 QRSD: 91 T: 100 QT: 360 QTc: 409 Interpretive Statements ATRIAL FIBRILLATION INFERIOR MYOCARDIAL INFARCTION, PROBABLY OLD ANTEROSEPTAL MYOCARDIAL INFARCTION, PROBABLY OLD Electronically Signed On 03-12-2018 7:54:51 EDT by Atif Russo
[2018-03-12] MEDS ORDERED: *HR* Digoxin 0.125 MG TABLET PO SCH (09:00)
== END 2018-03-11 11:26 | disposition home or self-care (01) ==
LOC: 3BNU 14:18 → EMEROO 14:18 → 3BNU 16:51
PROVIDERS: ADMIT Family Medicine; ATTEND Family Medicine
PROC: ENDOEBX (2018-03-10 08:30)

== ENCOUNTER 2018-04-02 23:10 | Observation (INO) ==
[2018-04-03] MEDS ORDERED: Naloxone 0.4 MG/ML INJ IVP PRN (05:29)
[2018-04-03] MEDS ORDERED: *HR* HYDROcodone/Acet 5/325 mg TABLET PO PRN (05:30)
--- NOTE | 2018-04-03 05:32 | Internal Med History&Physical ---
Date of Encounter: 04/03/18 Time of Encounter: 05:31 Internal Medicine - H&P: HPI Chief complaint: Abdominal pain Admitted From: Hospital to Hospital Transfer Plans for Post Hospital Care: Home History of present illness: Ms. Kang is a 88 year old female with past medical history of CAD, hypertension, a fib, CHF, CKD, diabetes presented to [facility] as a transfer from [place] [facility] due to abdominal pain. Patient reported that she had been having abdominal pain for 5 days that is intermittently sharp and dull. The pain did not improve so she went to the ED. She has had associated increase in urinary frequency. She denied fever, chills, nausea, vomiting, chest pain, shortness of breath, dysuria, hematuria, diarrhea, constipation, melena, hematechezia. In [place] [facility] abdominal CT demonstrated findings concerning for rectosigmoid colitis and right hydronephrosis and pyelonephritis, bilateral renal lesions 1.1 cm with recommendation for renal ultrasound syntheses are larger than most renal cyst. She was given 2L IVF, IV Levaquin, IV Flagyl. Blood cultures were taken. She is a full code. Past Med Surg Social Fam HX - Past Medical History Medical history: atrial fibrillation, CHF, diabetes, hyperlipidemia, hypertension, myocardial infarction Psychiatric history: anxiety - Past Surgical History Surgical History: angioplasty/stent, cholecystectomy, hysterectomy, other Additional surgical history: Back surgery. Cardiac Stents x 6 - Social History Smoking Status: Never smoker Smokeless Tobacco Status: No Alcohol use: none Drug use: none - Family History Sister Adopted: No Family Member Ethnicity: Non- Living Status: Still Living Hx Family Cardiac Disorders: Yes Hx Family Respiratory Disorders: No Hx Family Cancer: No Hx Family GI Disorders: No Hx Family Endocrine Disorder: No Hx Family Neuromuscular Disorders: No Hx Family Neurologic Disorders: No Hx Family HEENT Disorders: No Hx Family Autoimmune Disorders: No Internal Medicine - H&P: Meds Atorvastatin [Lipitor] 40 mg PO HS 01/25/16 [History] Carvedilol [Coreg] 25 mg PO BID 01/25/16 [History] Clopidogrel [Plavix] 75 mg PO DAILY 01/25/16 [History] Glimepiride [Amaryl] 1 mg PO DAILY 01/25/16 [History] Isosorbide MONOnitrate [Isosorbide Mononitrate ER] 120 mg PO DAILY 01/25/16 [ History] Potassium Chloride [Klor-Con] 20 meq PO DAILY 01/25/16 [History] SitaGLIPtin [Januvia] 100 mg PO DAILY 01/25/16 [History] Aspirin [Lo-Dose Aspirin EC] 81 mg PO QAM 08/19/16 [History] HYDROcodone/Acet 5/325 mg [[place] 5-325 mg] 1 tab PO Q6H PRN 08/19/16 [History] Folic Acid 1 mg PO DAILY #30 tablet 10/25/16 [Rx] Torsemide [Demadex] 40 mg PO DAILY 365 Days tablet 11/24/16 [Rx] Digoxin [Lanoxin] 0.125 mg PO Q48H 06/19/17 [History] Cyanocobalamin (B-12) [Vitamin B12] 1,000 mcg PO DAILY #90 tablet 11/03/17 [Rx] Omeprazole [PriLOSEC] 20 mg PO BIDAC 30 Days #60 capsule. 03/11/18 [Rx] Sucralfate [Carafate] 1 gm PO QIDAC 30 Days #120 udc 03/11/18 [Rx] Lisinopril [Lisinopril] 1 tab ORAL RINSE DAILY 04/03/18 [History] 3 Allergy/AdvReac Type Severity Reaction Status Date / Time cephalexin [From Keflex] AdvReac See Verified 03/19/18 10:06 Comments All Systems PM: A 10-system review of systems was performed and is negative for pertinent findings except as documented above in the HPI. - Constitutional Constitutional: no chills, no fever(s) - EENT Eyes: no change in vision - Cardiovascular Cardiovascular ROS IM: no chest pain, no diaphoresis - Respiratory Respiratory: no cough, no dyspnea - Gastrointestinal Gastrointestinal: abdominal pain - Genitourinary Genitourinary: urinary frequency (Increased), urinary urgency, no dysuria, no hematuria - Musculoskeletal Musculoskeletal ROS IM: no arthralgias - Integumentary Integumentary IM: no erythema, no new lesions - Neurological Neurological ROS: no dizziness - Psychiatric Psychiatric: no confusion - Constitutional Vitals: Temp Pulse Resp BP Pulse Ox 100.2 F H 87 16 161/77 95 04/03/18 03:35 04/03/18 03:35 04/03/18 03:35 04/03/18 03:35 04/03/18 03:35 General appearance: Present: A&O X 3, pleasant, no acute distress - Head Head exam: Present: atraumatic, normal inspection - Eye Eye exam: Absent: conjunctival injection - Respiratory Respiratory exam: Present: CTAB. Absent: rales, rhonchi - Cardiovascular Cardiovascular exam: Present: irregular rhythm. Absent: systolic murmur - GI/Abdominal GI/Abdominal exam: Present: distended, hypoactive bowel sounds, soft, tenderness (LLQ, RLQ, suprapubic). Absent: firm, guarding, rigid - Expanded Lower Extremities Exam Lower Leg exam: Present: swelling (non pitting edema), tenderness. Absent: ecchymosis, erythema - Neurological Exam Neurological exam: Present: alert, oriented X3 - Psychiatric Psychiatric exam: Present: normal affect, normal mood - Skin Skin exam: Present: dry, intact - Assessment and plan (1) Cystitis Current Visit: Yes Status: Acute Assessment and plan: Patient likely have cystitis due to symptoms of increased urinary frequency, urgency. Denies hematuria, dysuria, fever, chills, diarrhea, constipation, melena. She has suprapubic tenderness. Unlikely to be colitis however due to imaging concerning for it will continue to treat for now. Abd/ pelvis CT demonstrating right hydronephrosis without obstructing renal stone, cystitis, pyelonephritis, rectosigmoid colitis. Bilateral renal cortical rounded lesions measuring 1.1 cm, recommended renal ultrasound to exclude solid lesion. WBC WNL Plan -IV Rocephin -IV Flagyl -blood culture pending -urine culture pending (2) Hydronephrosis, right Current Visit: Yes Status: Acute Assessment and plan: Right hydronephrosis and Bilateral renal lesions demonstrated by abdominal CT this is likely secondary to cystitis. Abd/ pelvis CT demonstrating right hydronephrosis without obstructing renal stone, cystitis, pyelonephritis, rectosigmoid colitis. Bilateral renal cortical rounded lesions measuring 1.1 cm, recommended renal ultrasound to exclude solid lesion. -Will order a renal ultrasound to evaluate the bilateral renal lesions (3) CAD (coronary artery disease) Current Visit: No Status: Chronic Assessment and plan: History of CAD with stents. Continue home medications Imdur, aspirin, carvedilol, Lipitor, Plavix. Holding lisinopril due to ERICA. Reduced ejection fraction congestive heart failure TTE 03/2018: EF 30-35%, severe pulmonary hypertension -continue medications, caution IV fluids. Patient received 2L IVF at [place] [facility]. Qualifiers: Coronary Disease-Associated Artery/Lesion type: [place] artery [place] vs. transplanted heart: [place] heart Associated angina: without angina Qualified Code(s): I25.10 - Atherosclerotic heart disease of [place] coronary artery without angina pectoris (4) Atrial fibrillation Current Visit: No Status: Chronic Assessment and plan: History of known atrial fibrillation. Heart rate stable continue home medications Qualifiers: Atrial fibrillation type: chronic Qualified Code(s): I48.2 - Chronic atrial fibrillation (5) Acute kidney injury Current Visit: Yes Status: Acute Assessment and plan: ERICA with creatinine 1.66 (baseline 1.2-1.3) -avoid nephrotoxic agents -patient received IV fluids -continue monitor creatinine (6) CKD (chronic kidney disease) stage 3, GFR 30-59 ml/min Current Visit: No Status: Chronic Assessment and plan: History of known CKD. -Avoid nephrotoxic agents -continue to monitor (7) DVT prophylaxis Current Visit: Yes Status: Acute Assessment and plan: Heparin SQ - Time Spent With Patient Total time spent is greater than 50% in coordination of care (as documented) at patient's floor/unit and/or counseling patient:
[2018-04-03] MEDS ORDERED: cefTRIAXone 1,000 MG in Water for inj. (sterile) 20 ML 10 ML IVP SCH (06:44)
[2018-04-03 07:05] LABS: Basophils % 0.2 %; Eosinophils % 0.2 %; Mean Corpuscular Volume 98.5 fL (83.0-100.0)
[2018-04-03 07:06] LABS: Hematocrit 32.3 % (35.3-44.9); Hemoglobin 10.5 g/dL (11.5-15.4); Immature Granulocytes % 0.5 % (0-4); Immature Platelets 3.5 % (1.1-6.1); Lymphocytes # 0.6 K/mcL (0.6-4.6); Lymphocytes % 13.4 %; Mean Corpuscular HGB Conc 32.5 g/dL (31.6-35.5); Mean Platelet Volume 10.4 fL (9.4-12.4); Monocytes # 0.4 K/mcL (0.0-1.3); Monocytes % 9.8 %; Neutrophils # 3.2 K/mcL (1.6-8.9); Red Blood Count 3.28 M/mcL (3.82-4.97); Red Cell Distribution Width 13.6 % (11.5-14.5); Segmented Neutrophils % 75.9 %
[2018-04-03 07:24] LABS: Calcium 9.1 mg/dL (8.6-10.3); Potassium 3.8 mEq/L (3.5-5.1)
[2018-04-03 07:26] LABS: Platelet Count 73 K/mcL (140-400)
[2018-04-03] MEDS: Cyanocobalamin (B-12) 1,000 MCG TABLET PO SCH (07:48)
[2018-04-03] MEDS: Aspirin Enteric Coated 81 MG Tablet PO SCH (07:48)
[2018-04-03] MEDS: Folic Acid 1 MG TABLET PO SCH (07:48)
[2018-04-03] MEDS: Isosorbide MONOnitrate (24 HR) 60 MG TAB.ER.24H PO SCH (07:49)
[2018-04-03] MEDS: *HR* Digoxin 0.125 MG TABLET PO SCH (07:49)
[2018-04-03] MEDS ORDERED: MetroNIDAZOLE 500 MG/100 ML 500 MG/100 ML BAG IVPB SCH (08:00)
[2018-04-03] MEDS ORDERED: *HR* Glimepiride 2 MG TABLET PO SCH (08:00)
[2018-04-03] MEDS: Acetaminophen 325 MG TABLET PO PRN ×2 (08:11→19:27)
[2018-04-03] MEDS ORDERED: *HR* SitaGLIPtin 100 MG TABLET PO SCH (09:00)
--- NOTE | 2018-04-03 14:05 | Internal Med Progress Note ---
<Sweta Rowley - Last Filed: 04/03/18 15:08> Date of Encounter: 04/03/18 Time of Encounter: 01:55 - Assessment and plan (1) CKD (chronic kidney disease) stage 3, GFR 30-59 ml/min Current Visit: No Status: Chronic Assessment and plan: -Holding nephrotoxic medications -Continue to monitor (2) Atrial fibrillation Current Visit: No Status: Chronic Assessment and plan: Continue home medications Qualifiers: Atrial fibrillation type: chronic Qualified Code(s): I48.2 - Chronic atrial fibrillation (3) CAD (coronary artery disease) Current Visit: No Status: Chronic Assessment and plan: History of CAD with stents. Continue aspirin, atorvastatin, carvedilol, clopidogrel. Holding lisinopril due to ERICA. Also has systolic CHF with EF of 30-35 on 03/19/18. Qualifiers: Coronary Disease-Associated Artery/Lesion type: [place] artery [place] vs. transplanted heart: [place] heart Associated angina: without angina Qualified Code(s): I25.10 - Atherosclerotic heart disease of [place] coronary artery without angina pectoris (4) DVT prophylaxis Current Visit: Yes Status: Acute Assessment and plan: Heparin SQ (5) Hydronephrosis, right Current Visit: Yes Status: Acute Assessment and plan: Renal Ultrasound pending (6) Cystitis Current Visit: Yes Status: Acute Assessment and plan: CT showed urinary bladder wall thickening, and prominence of the right renal pelvis and proximal ureter. Plan: continue zosyn, blood culture pending and urine culture pending (7) Acute kidney injury Current Visit: Yes Status: Acute Assessment and plan: ERICA with creatinine at 1.66 upon presentation, 1.29 this morning (baseline 1.2- 1.3) -avoid nephrotoxic agents -patient received IV fluids -continue monitor creatinine (8) Sepsis Current Visit: Yes Status: Acute Assessment and plan: Continue zosyn Holding IV fluids due to CHF Qualifiers: Sepsis type: sepsis due to unspecified organism Qualified Code(s): A41.9 - Sepsis, unspecified organism - Time Spent With Patient Total time spent is greater than 50% in coordination of care (as documented) at patient's floor/unit and/or counseling patient: - Subjective Interval history: 88 Year old female seen at bedside this morning. She presented due to lower abdominal pain ongoing for the past 5 days. She stated her pain is waxing and wanning. This morning she states her pain has significantly improved. She has associated urinary frequency, but denies dysuria, or hematuria. She denies fever , chills, headache, nausea, vomiting, shortness of breath, chest pain, numbness , tingling, emesis, diarrhea, constipation, nati or hematechezia. - Constitutional Vitals: Temp Pulse Resp BP Pulse Ox 98.0 F 66 15 95/56 96 04/03/18 10:42 04/03/18 10:42 04/03/18 10:42 04/03/18 10:42 04/03/18 10:42 General appearance: Present: A&O X 3, pleasant, no acute distress - Head Head exam: Present: atraumatic, normocephalic - Eye Eye exam: Present: EOMI, normal appearance, sclera anicteric - ENT ENT exam: Present: mucous membranes moist - Neck Neck exam general surgery: Present: normal inspection, supple, trachea midline - Respiratory Respiratory exam: Present: CTAB - Cardiovascular Cardiovascular exam: Present: RRR, +S1, +S2 - Expanded Cardiovascular Exam Peripheral pulses: 2+: Dorsalis Pedis (L) PM, Dorsalis Pedis (R) PM - GI/Abdominal GI/Abdominal exam: Present: normal bowel sounds, soft, tenderness (suprapubic region) - Extremities Exam Extremities exam: Present: tenderness (mild chronic tenderness left lower leg), warm - Psychiatric Psychiatric exam: Present: normal affect Internal Medicine: Result - Labs CBC & Chem 7: 04/03/18 06:51 04/03/18 06:51 Labs: Short CBC 04/03/18 Range/Units 06:51 WBC 4.2 L (4.3-11.1) K/mcL Hgb 10.5 L (11.5-15.4) g/dL Hct 32.3 L (35.3-44.9) % Plt Count 73 L (140-400) K/mcL Neutrophils # 3.2 (1.6-8.9) K/mcL BMP 04/03/18 06:51 Sodium 139 Potassium 3.8 Chloride 105 Carbon Dioxide 23 BUN 24 H Creatinine 1.29 H Glucose 127 H Calcium 9.1 - ABG Interpretation Interpretation: ABG interpreted by me (Leukopenia, thrombocytopenia, anemia, elevated creatinine and elevated BUN) - Pulse Oximetry Interpretation Digit-Finger O2 Sat by Pulse Oximetry: 99 (room air) - EKG Interpretation EKG Interpreted by Myself: No (A-fib, with inferior PA (old) and anteroseptal PA of indetermined age) - Prior EKG Data Prior EKG available for review: no - Diagnostic Studies CT scan - abdomen Additional comments: //CT of abdomen and pelvis conducted at [facility] on 04/02/18. CT shows bibasilar scarring, surgically absent gallbladder. Prominence of right renal pelvis. 3 left and 1 right renal cortical density greater than expected of simple cysts, measuring 1.1 cm. Some wall thickening of rectosigmoid colon. Urinary bladder shows wall thickening. Uterus is surgically absent. Calcification of abdominal aorta without aneurysmal dilation. Consult Discharge Plan - Plan Referrals: Tangela Prieto CNP [Primary Care Provider] - <Giselle Hinson - Last Filed: 04/03/18 22:23> Date of Encounter: 04/03/18 - Assessment and plan (1) CKD (chronic kidney disease) stage 3, GFR 30-59 ml/min Current Visit: No Status: Chronic (2) Atrial fibrillation Current Visit: No Status: Chronic Qualifiers: Atrial fibrillation type: chronic Qualified Code(s): I48.2 - Chronic atrial fibrillation (3) CAD (coronary artery disease) Current Visit: No Status: Chronic Qualifiers: Coronary Disease-Associated Artery/Lesion type: [place] artery [place] vs. transplanted heart: [place] heart Associated angina: without angina Qualified Code(s): I25.10 - Atherosclerotic heart disease of [place] coronary artery without angina pectoris (4) DVT prophylaxis Current Visit: Yes Status: Acute (5) Hydronephrosis, right Current Visit: Yes Status: Acute (6) Cystitis Current Visit: Yes Status: Acute (7) Acute kidney injury Current Visit: Yes Status: Acute (8) Sepsis Current Visit: Yes Status: Acute Qualifiers: Sepsis type: sepsis due to unspecified organism Qualified Code(s): A41.9 - Sepsis, unspecified organism - Time Spent With Patient Total time spent is greater than 50% in coordination of care (as documented) at patient's floor/unit and/or counseling patient: - Constitutional Vitals: Temp Pulse Resp BP Pulse Ox 101.1 F H 92 14 149/73 94 04/03/18 20:57 04/03/18 19:19 04/03/18 19:19 04/03/18 19:19 04/03/18 19:19 Internal Medicine: Result - Labs CBC & Chem 7: 04/03/18 06:51 04/03/18 06:51 Labs: Short CBC 04/03/18 Range/Units 06:51 WBC 4.2 L (4.3-11.1) K/mcL Hgb 10.5 L (11.5-15.4) g/dL Hct 32.3 L (35.3-44.9) % Plt Count 73 L (140-400) K/mcL Neutrophils # 3.2 (1.6-8.9) K/mcL BMP 04/03/18 06:51 Sodium 139 Potassium 3.8 Chloride 105 Carbon Dioxide 23 BUN 24 H Creatinine 1.29 H Glucose 127 H Calcium 9.1 - Impressions Impressions Retroperitoneum Ultrasound 04/03/18 16:30 IMPRESSION: The two lower pole left renal lesions noted on CT are consistent with simple cysts on ultrasound. The right renal lesion is not visible sonographically. Otherwise unremarkable bilateral renal ultrasound. Suboptimal evaluation of the urinary bladder due to lack of distention. Ureteral jets are documented. D/ / 04/03/2018 18:23:37 Tommy Ortiz MD / [email or web address] Interpreting Provider: Tommy Ortiz MD - Attending Attestation I examined this patient and my medical decision-making was reviewed with the Resident Physician. I agree with the documented findings, disposition and treatment plan as described except to the extent set forth below. Patient states symptoms improving. Tmax 101.6 in AM, BP and HR unremarkable. She is in no distress, CVS and respiratory exam unremarkable, MMM, abdomen is soft with normal bowel sounds. WBC within normal limits, but review of further history on EMR patient has chronic leukopenia. Sepsis secondary to pyelonephritis. Fever is persistent though this may take time to have antibiotics to decrease fever, she will likely need escalation of therapy. This AM Zosyn started and discontinue Rocephin and Flagyl. DC metformin and sitagliptin while admitted. Continue sliding scale and diabetic diet. If patient needs fluid hydration it will need given cautiously has she does have HFrEF with last EF 35%. She is at baseline renal function. Follow-up urine and blood cultures.
[2018-04-03] MEDS: Piperacillin/Tazobactam 3.375 GM in 0.9 % Sodium Chloride Mini Bag 100 ML IVPB SCH (15:50)
[2018-04-03] MEDS: *HR* Heparin 5,000 UNIT/ML VIAL SQ SCH (17:30)
[2018-04-04] MEDS: Piperacillin/Tazobactam 3.375 GM in 0.9 % Sodium Chloride Mini Bag 100 ML IVPB SCH ×4 (00:47→17:47)
[2018-04-04 02:02] LABS: Immature Granulocytes % 0.2 % (0-4)
[2018-04-04 02:04] LABS: Basophils % 0.4 %; Eosinophils % 0.9 %; Hematocrit 31.6 % (35.3-44.9); Hemoglobin 10.2 g/dL (11.5-15.4); Immature Platelets 4.7 % (1.1-6.1); Lymphocytes # 0.7 K/mcL (0.6-4.6); Lymphocytes % 15.3 %; Mean Corpuscular HGB Conc 32.3 g/dL (31.6-35.5); Mean Corpuscular Hemoglobin 31.9 pg (28.0-33.3); Mean Corpuscular Volume 98.8 fL (83.0-100.0); Mean Platelet Volume 10.9 fL (9.4-12.4); Monocytes # 0.5 K/mcL (0.0-1.3); Monocytes % 10.5 %; Neutrophils # 3.4 K/mcL (1.6-8.9); Red Cell Distribution Width 13.6 % (11.5-14.5); Segmented Neutrophils % 72.7 %
[2018-04-04 02:05] LABS: Platelet Count 73 K/mcL (140-400)
[2018-04-04 02:21] LABS: Potassium 3.5 mEq/L (3.5-5.1)
[2018-04-04] MEDS: Acetaminophen 325 MG TABLET PO PRN (04:42)
[2018-04-04] MEDS: *HR* Heparin 5,000 UNIT/ML VIAL SQ SCH ×2 (04:44→17:37)
[2018-04-04] MEDS ORDERED: *HR* SitaGLIPtin 25 MG TABLET PO SCH (09:00)
[2018-04-04] MEDS: Aspirin Enteric Coated 81 MG Tablet PO SCH (09:34)
[2018-04-04] MEDS: Isosorbide MONOnitrate (24 HR) 60 MG TAB.ER.24H PO SCH (09:34)
[2018-04-04] MEDS: Cyanocobalamin (B-12) 1,000 MCG TABLET PO SCH (09:34)
[2018-04-04] MEDS: Folic Acid 1 MG TABLET PO SCH (09:35)
--- NOTE | 2018-04-04 09:53 | Internal Med Progress Note ---
<Sweta Rowley - Last Filed: 04/04/18 13:45> Date of Encounter: 04/04/18 Time of Encounter: 09:50 - Assessment and plan (1) CKD (chronic kidney disease) stage 3, GFR 30-59 ml/min Current Visit: No Status: Chronic Assessment and plan: -Holding nephrotoxic medications -Continue to monitor (2) Atrial fibrillation Current Visit: No Status: Chronic Assessment and plan: Continue home medications Qualifiers: Atrial fibrillation type: chronic Qualified Code(s): I48.2 - Chronic atrial fibrillation (3) CAD (coronary artery disease) Current Visit: No Status: Chronic Assessment and plan: History of CAD with stents. -Continue aspirin, atorvastatin, carvedilol, clopidogrel. -Holding lisinopril due to ERICA. -Has systolic CHF with EF of 30-35 per echo on 03/19/18. Qualifiers: Coronary Disease-Associated Artery/Lesion type: [place] artery [place] vs. transplanted heart: [place] heart Associated angina: without angina Qualified Code(s): I25.10 - Atherosclerotic heart disease of [place] coronary artery without angina pectoris (4) Cystitis Current Visit: Yes Status: Acute Assessment and plan: CT showed urinary bladder wall thickening -prominence of the right renal pelvis and proximal ureter. -Urine culture shows gram negative rods. -Plan: continue zosyn, blood culture shows no growth. (5) Acute kidney injury Current Visit: Yes Status: Acute Assessment and plan: ERICA with creatinine at 1.66 upon presentation, 1.28 this morning (baseline 1.2- 1.3) -stable renal function -avoid nephrotoxic agents -patient received IV fluids -continue to monitor creatinine (6) DVT prophylaxis Current Visit: Yes Status: Acute Assessment and plan: Heparin SQ (7) Sepsis Current Visit: Yes Status: Acute Assessment and plan: Resolving. Continue zosyn Holding IV fluids due to CHF Qualifiers: Sepsis type: sepsis due to unspecified organism Qualified Code(s): A41.9 - Sepsis, unspecified organism - Time Spent With Patient Total time spent is greater than 50% in coordination of care (as documented) at patient's floor/unit and/or counseling patient: - Subjective Interval history: 88 Year old female seen at bedside this morning. She was sitting comfortably on the bed, eating her breakfast. She had presented due to lower abdominal pain ongoing for 5 days. This morning she denies any pain on her abdomen or suprapubic region. Her urinary frequency has resolved, she denies dysuria, or hematuria. She denies fever, chills, headache, nausea, vomiting, shortness of breath, chest pain, numbness, tingling, emesis, diarrhea, constipation, nati or hematechezia. - Constitutional Vitals: Temp Pulse Resp BP Pulse Ox 99.8 F H 78 16 124/71 96 04/04/18 07:46 04/04/18 07:46 04/04/18 07:46 04/04/18 07:46 04/04/18 08:00 General appearance: Present: A&O X 3, pleasant, no acute distress - Head Head exam: Present: atraumatic, normocephalic - Eye Eye exam: Present: sclera anicteric - ENT ENT exam: Present: mucous membranes moist - Neck Neck exam general surgery: Present: full ROM, trachea midline - Respiratory Respiratory exam: Present: CTAB. Absent: rales, rhonchi, wheezes - Cardiovascular Cardiovascular exam: Present: +S1, +S2. Absent: JVD - GI/Abdominal GI/Abdominal exam: Present: normal bowel sounds, soft. Absent: rebound, rigid, tenderness - Extremities Exam Extremities exam: Present: warm (mild non pitting edema lower leg bilaterally) - Back Exam Back exam: Absent: CVA tenderness (L), CVA tenderness (R) - Psychiatric Psychiatric exam: Present: normal mood - Skin Skin exam: Present: dry, intact, warm. Absent: rash Internal Medicine: Result - Labs CBC & Chem 7: 04/04/18 01:07 04/04/18 01:07 Labs: Short CBC 04/04/18 Range/Units 01:07 WBC 4.7 (4.3-11.1) K/mcL Hgb 10.2 L (11.5-15.4) g/dL Hct 31.6 L (35.3-44.9) % Plt Count 73 L (140-400) K/mcL Neutrophils # 3.4 (1.6-8.9) K/mcL BMP 04/04/18 01:07 Sodium 137 Potassium 3.5 Chloride 104 Carbon Dioxide 26 BUN 21 Creatinine 1.28 H Glucose 85 Calcium 9.0 - Impressions Impressions Retroperitoneum Ultrasound 04/03/18 16:30 IMPRESSION: The two lower pole left renal lesions noted on CT are consistent with simple cysts on ultrasound. The right renal lesion is not visible sonographically. Otherwise unremarkable bilateral renal ultrasound. Suboptimal evaluation of the urinary bladder due to lack of distention. Ureteral jets are documented. D/ / 04/03/2018 18:23:37 Tommy Ortiz MD / [email or web address] Interpreting Provider: Tommy Ortiz MD - Diagnostic Studies Other Images Additional comments: Renal ultrasound: The right kidney measures 10.7 cm in length with renal cortical thickness of 12 mm. The left kidney measures 11.3 cm in length with renal cortical thickness of 12 mm. Renal parenchymal echogenicity is normal and there is no hydronephrosis. On the right, at the small cystic lesion noted on previous CT is not visible. On the left, there are two lower pole cysts, likely corresponding to two of the three left renal lesions. These measure 1.5 x 1.6 x 1.2 cm, and 1.4 x 1.4 x 1.1 cm. Given the appearance on CT, these are consistent with hyperdense or proteinaceous renal cysts. Read by Dr. Martha Pack Consult Discharge Plan - Plan Referrals: Tagnela Prieto, REGISTERED APPRAISER [Primary Care Provider] - <Giselle Hinson - Last Filed: 04/04/18 18:23> Date of Encounter: 04/04/18 - Assessment and plan (1) CKD (chronic kidney disease) stage 3, GFR 30-59 ml/min Current Visit: No Status: Chronic (2) Atrial fibrillation Current Visit: No Status: Chronic Qualifiers: Atrial fibrillation type: chronic Qualified Code(s): I48.2 - Chronic atrial fibrillation (3) CAD (coronary artery disease) Current Visit: No Status: Chronic Qualifiers: Coronary Disease-Associated Artery/Lesion type: [place] artery [place] vs. transplanted heart: [place] heart Associated angina: without angina Qualified Code(s): I25.10 - Atherosclerotic heart disease of [place] coronary artery without angina pectoris (4) DVT prophylaxis Current Visit: Yes Status: Acute (5) Cystitis Current Visit: Yes Status: Acute (6) Acute kidney injury Current Visit: Yes Status: Acute (7) Sepsis Current Visit: Yes Status: Acute Qualifiers: Sepsis type: sepsis due to unspecified organism Qualified Code(s): A41.9 - Sepsis, unspecified organism - Time Spent With Patient Total time spent is greater than 50% in coordination of care (as documented) at patient's floor/unit and/or counseling patient: - Constitutional Vitals: Temp Pulse Resp BP Pulse Ox 98.6 F 70 14 105/46 96 04/04/18 15:18 04/04/18 15:18 04/04/18 15:18 04/04/18 15:18 04/04/18 15:18 Internal Medicine: Result - Labs CBC & Chem 7: 04/04/18 01:07 04/04/18 01:07 Labs: Short CBC 04/04/18 Range/Units 01:07 WBC 4.7 (4.3-11.1) K/mcL Hgb 10.2 L (11.5-15.4) g/dL Hct 31.6 L (35.3-44.9) % Plt Count 73 L (140-400) K/mcL Neutrophils # 3.4 (1.6-8.9) K/mcL BMP 04/04/18 01:07 Sodium 137 Potassium 3.5 Chloride 104 Carbon Dioxide 26 BUN 21 Creatinine 1.28 H Glucose 85 Calcium 9.0 - Impressions Impressions Retroperitoneum Ultrasound 04/03/18 16:30 IMPRESSION: The two lower pole left renal lesions noted on CT are consistent with simple cysts on ultrasound. The right renal lesion is not visible sonographically. Otherwise unremarkable bilateral renal ultrasound. Suboptimal evaluation of the urinary bladder due to lack of distention. Ureteral jets are documented. D/ / 04/03/2018 18:23:37 Tommy Ortiz MD / [email or web address] Interpreting Provider: Tommy Ortiz MD - Attending Attestation I examined this patient and my medical decision-making was reviewed with the Resident Physician. I agree with the documented findings, disposition and treatment plan as described except to the extent set forth below. Today patient states she is doing better. She is only eating small amounts of breakfast and lunch. She denies fevers/chills, abdominal pain. VS reviewed, stable, afebrile. Labs show CBC and BMP unchanged from yesterdays labs. Retroperitoneal ultrasound shows two left renal lesions of simple cysts that were also seen on CT. There was no hydronephrosis seen on ultrasound. Patient no acute distress, abdomen slightly tender. 1. Sepsis secondary to UTI, possibly colitis 2. CKD 3. Afib 4. CAD 5. ERICA on chronic kidney disease - Continue Zosyn - Advance diet, currently poor. - Await culture sensitivities. Currently Urine culture from 04/02/18 shows gram negative rods.
[2018-04-04] MEDS ORDERED: Dextrose Gel 15 GM/37.5 ML TUBE PO PRN ×2 (12:16)
[2018-04-04] MEDS ORDERED: *HR* Dextrose 50 % in Water (Syg) 50 ML SYRINGE IVP PRN (12:16)
[2018-04-04] MEDS ORDERED: D5% in Water 1,000 ML IVC PRN (12:16)
[2018-04-04] MEDS: Insulin LISPRO 300 UNITS/3 ML VIAL SQ SCH (17:35)
[2018-04-04] MEDS ORDERED: Insulin LISPRO 300 UNITS/3 ML VIAL SQ SCH (21:00)
[2018-04-05] MEDS: Piperacillin/Tazobactam 3.375 GM in 0.9 % Sodium Chloride Mini Bag 100 ML IVPB SCH ×2 (01:14→08:42)
[2018-04-05] MEDS: *HR* Heparin 5,000 UNIT/ML VIAL SQ SCH (06:18)
[2018-04-05 06:49] LABS: Basophils % 0.5 %; Immature Granulocytes % 0.5 % (0-4); Lymphocytes % 14.4 %
[2018-04-05 06:52] LABS: Eosinophils # 0.1 K/mcL (0.0-0.6); Eosinophils % 2.1 %; Hematocrit 31.2 % (35.3-44.9); Hemoglobin 10.1 g/dL (11.5-15.4); Immature Platelets 4.1 % (1.1-6.1); Lymphocytes # 0.6 K/mcL (0.6-4.6); Mean Corpuscular HGB Conc 32.4 g/dL (31.6-35.5); Mean Corpuscular Hemoglobin 32.1 pg (28.0-33.3); Mean Platelet Volume 10.7 fL (9.4-12.4); Monocytes # 0.4 K/mcL (0.0-1.3); Monocytes % 9.7 %; Red Blood Count 3.15 M/mcL (3.82-4.97); Red Cell Distribution Width 13.4 % (11.5-14.5); Segmented Neutrophils % 72.8 %
[2018-04-05 07:02] LABS: Neutrophils # 3.1 K/mcL (1.6-8.9); Platelet Count 80 K/mcL (140-400)
[2018-04-05 07:10] LABS: Calcium 9.2 mg/dL (8.6-10.3); Potassium 3.6 mEq/L (3.5-5.1)
[2018-04-05] MEDS: Insulin LISPRO 300 UNITS/3 ML VIAL SQ SCH ×2 (07:43→11:46)
[2018-04-05] MEDS: Isosorbide MONOnitrate (24 HR) 60 MG TAB.ER.24H PO SCH (08:41)
--- NOTE | 2018-04-05 08:41 | Event Note ---
Date of Encounter: 04/05/18 Time of Encounter: 08:39 Hemoglobin reviewed today and now low as 6.1. He is hemodynamically stable. He had a supposed reaction to blood transfusion few days ago. I am unsure if this is a true reaction or not. I have consulted Hematology/Oncology for further recommendations and patient will be closely monitored.
[2018-04-05] MEDS: *HR* Digoxin 0.125 MG TABLET PO SCH (08:42)
[2018-04-05] MEDS: Aspirin Enteric Coated 81 MG Tablet PO SCH (08:42)
[2018-04-05] MEDS: Folic Acid 1 MG TABLET PO SCH (08:42)
[2018-04-05] MEDS: Cyanocobalamin (B-12) 1,000 MCG TABLET PO SCH (08:42)
[2018-04-05] MEDS ORDERED: Pantoprazole 40 MG in 0.9 % Sodium Chloride Mini Bag 100 ML IVC SCH (08:45)
[2018-04-05] MEDS ORDERED: Nitroglycerin 0.4 MG TAB.SUBL SL PRN (08:48)
[2018-04-05] MEDS ORDERED: Aspirin Enteric Coated 81 MG Tablet PO SCH (09:00)
--- NOTE | 2018-04-05 13:36 | Discharge Summary ---
<Sweta Rowley - Last Filed: 04/05/18 14:14> - NOTES TO OUTPATIENT PROVIDER Notes to Outpatient Provider: Ms. Kang presented to [facility] as a transfer from [facility] due to abdominal pain. Patient reported that she had been having abdominal pain for 5 days that is intermittently sharp and dull. In [facility] abdominal CT right hydronephrosis and pyelonephritis, bilateral renal lesions 1.1 cm. Follow up ultrasound was conducted and showed two small cystic lesions in the left kidney and 1 small cystic lesion in the right kidney. Her urine culture showed klebsiella. Zosyn was given inpatient for 3 total days. Amoxicillin was started this morning. Her blood cultures have been negative. Date of Encounter: 04/05/18 Time of Encounter: 01:25 - Discharge Diagnosis (1) CKD (chronic kidney disease) stage 3, GFR 30-59 ml/min Priority: Secondary Status: Chronic Assessment and Plan: Held nephrotoxic medications. Her creatinine has remained at baseline and today it improved to 1.18. (2) Atrial fibrillation Priority: Secondary Status: Chronic Assessment and Plan: Controlled with digoxin. On antiplatelet therapy, clopidegrel. Continue home medications. Qualifiers: Atrial fibrillation type: chronic Qualified Code(s): I48.2 - Chronic atrial fibrillation (3) CAD (coronary artery disease) Priority: Secondary Status: Chronic Assessment and Plan: History of CAD with stents. Continued aspirin, atorvastatin, carvedilol, clopidogrel. Holding lisinopril due to ERICA but was restarted at home dose. Has systolic CHF with EF of 30-35 per echo on 03/19/18. Qualifiers: Coronary Disease-Associated Artery/Lesion type: [place] artery [place] vs. transplanted heart: [place] heart Associated angina: without angina Qualified Code(s): I25.10 - Atherosclerotic heart disease of [place] coronary artery without angina pectoris (4) Cystitis Priority: Secondary Status: Acute Assessment and Plan: CT showed urinary bladder wall thickening. prominence of the right renal pelvis and proximal ureter. Urine culture shows gram negative rods. Zosyn was used inpatient and will continue treatment as outpatient with augmentin. Because she has history of previous UTI and CT images showed concern for hydronephrosis as though ultrasound ruled it out, she will be given medication for 7 additional days as outpatient. (5) Acute kidney injury Priority: Secondary Status: Resolved Assessment and Plan: ERICA with creatinine at 1.66 upon presentation, 1.18 this morning (baseline 1.2- 1.3). Avoided nephrotoxic medications. (6) DVT prophylaxis Priority: Secondary Status: Resolved (7) Sepsis Priority: Primary Status: Resolved Assessment and Plan: Sepsis secondary to urinary tract infection. It resolved after starting antibiotics. Zosyn was given for 3 days at the hospital and will augmentin is prescribed outpatient. Comments: Klebsiella Qualifiers: Sepsis type: sepsis due to unspecified organism Qualified Code(s): A41.9 - Sepsis, unspecified organism Hospital course: Ms. Kang is a 88 year old female Discharge discussed with: patient Time spent discussing smoking cessation with patient: 3 to 10 minutes - Time Spent with Patient Total time spent providing and/or coordinating discharge services: 15-20 minutes Specific discharge activities: Can continue home activities - Discharge Medications Prescriptions: Amoxicillin/Clavulanate [Augmentin] 500 mg PO BIDWM 7 Days #14 tablet Home Medications: Atorvastatin [Lipitor] 40 mg PO HS 01/25/16 [History] Carvedilol [Coreg] 25 mg PO BID 01/25/16 [History] Clopidogrel [Plavix] 75 mg PO DAILY 01/25/16 [History] Isosorbide MONOnitrate [Isosorbide Mononitrate ER] 120 mg PO DAILY 01/25/16 [ History] Potassium Chloride [Klor-Con] 20 meq PO DAILY 01/25/16 [History] SitaGLIPtin [Januvia] 100 mg PO DAILY 01/25/16 [History] HYDROcodone/Acet 5/325 mg [[place] 5-325 mg] 1 tab PO Q6H PRN 08/19/16 [History] Folic Acid 1 mg PO DAILY #30 tablet 10/25/16 [Rx] Torsemide [Demadex] 40 mg PO DAILY 365 Days tablet 11/24/16 [Rx] Digoxin [Lanoxin] 0.125 mg PO Q48H 06/19/17 [History] Cyanocobalamin (B-12) [Vitamin B12] 1,000 mcg PO DAILY #90 tablet 11/03/17 [Rx] Omeprazole [PriLOSEC] 20 mg PO BIDAC 30 Days #60 capsule. 03/11/18 [Rx] Sucralfate [Carafate] 1 gm PO QIDAC 30 Days #120 udc 03/11/18 [Rx] Aspirin Enteric Coated [Aspirin EC] 81 mg PO DAILY 04/03/18 [History] Glimepiride [Amaryl] 2 mg PO DAILY 04/03/18 [History] Lisinopril 2.5 mg PO DAILY 04/03/18 [History] Nitroglycerin [Nitrostat] 0.4 mg SL Q5M PRN 04/03/18 [History] Amoxicillin/Clavulanate [Augmentin] 500 mg PO BIDWM 7 Days #14 tablet 04/05/18 [ Rx] Allergies/Adverse Reactions: 3 Allergy/AdvReac Type Severity Reaction Status Date / Time cephalexin [From Keflex] AdvReac See Verified 04/03/18 08:33 Comments Date of admission: 04/03/18 00:15 Primary care physician: Tangela Prieto CNP Discharging clinician: Sweta Rowley Anticipated date of discharge: 04/05/18 - Constitutional Vitals: Temp Pulse Resp BP Pulse Ox 98.2 F 67 16 130/65 97 04/05/18 11:31 04/05/18 11:31 04/05/18 11:31 04/05/18 11:31 04/05/18 11:31 General appearance: Present: A&O X 3, pleasant, no acute distress - Head Head exam: Present: atraumatic, normocephalic - Eye Eye exam: Present: EOMI, sclera anicteric - ENT ENT exam: Present: mucous membranes moist - Neck Neck exam general surgery: Present: full ROM, trachea midline - Respiratory Respiratory exam: Present: CTAB. Absent: accessory muscle use, rales, rhonchi, wheezes - Cardiovascular Cardiovascular exam: Present: +S1, +S2. Absent: JVD - GI/Abdominal GI/Abdominal exam: Present: normal bowel sounds, soft. Absent: tenderness - Extremities Exam Extremities exam: Present: full ROM, warm. Absent: calf tenderness Additional comments: bilateral lower extremity +1 pitting edema. - Psychiatric Psychiatric exam: Present: normal affect. Absent: anxious - Skin Skin exam: Present: dry, warm. Absent: cyanosis, rash - Patient Status Disposition: Home, Self-Care Condition: Good Functional capacity at discharge: uses cane/walker Overall status at discharge: patient is progressing back to baseline - Discharge Instructions Instructions: Urinary Tract Infection in Women (DC) Follow Up With: Tangela Prieto CNP [Primary Care Provider] - 04/12/18 10:35 am - Diet and Activity Activity: as per physical therapy Diet: advance to your usual diet <Giselle Hinson - Last Filed: 04/05/18 17:53> Date of Encounter: 04/05/18 - Discharge Diagnosis (1) CKD (chronic kidney disease) stage 3, GFR 30-59 ml/min Status: Chronic (2) Atrial fibrillation Status: Chronic Qualifiers: Atrial fibrillation type: chronic Qualified Code(s): I48.2 - Chronic atrial fibrillation (3) CAD (coronary artery disease) Status: Chronic Qualifiers: Coronary Disease-Associated Artery/Lesion type: [place] artery [place] vs. transplanted heart: [place] heart Associated angina: without angina Qualified Code(s): I25.10 - Atherosclerotic heart disease of [place] coronary artery without angina pectoris (4) DVT prophylaxis Status: Resolved (5) Cystitis Status: Acute (6) Acute kidney injury Status: Resolved (7) Sepsis Status: Resolved Qualifiers: Sepsis type: sepsis due to unspecified organism Qualified Code(s): A41.9 - Sepsis, unspecified organism Hospital course: Ms. Kang is a 88 year old female - Time Spent with Patient Total time spent providing and/or coordinating discharge services: Date of admission: 04/03/18 00:15 Primary care physician: Tangela Prieto CNP - Constitutional Vitals: Temp Pulse Resp BP Pulse Ox 97.9 F 66 18 128/70 96 04/05/18 14:32 04/05/18 14:32 04/05/18 14:32 04/05/18 14:32 04/05/18 14:32 - Attending Attestation I examined this patient and my medical decision-making was reviewed with the Resident Physician. I agree with the documented findings, disposition and treatment plan as described except to the extent set forth below. HOSPITAL COURSE: Ms. Kang is a 88 year old female with past medical history of CAD, hypertension, a fib, systolic CHF, CKD, diabetes presented to [facility] as a transfer from [place] [facility] due to abdominal pain. Patient reported that she had been having abdominal pain for 5 days that is intermittently sharp and dull. She has had associated increase in urinary frequency. In [place] [facility] abdominal CT demonstrated findings concerning for rectosigmoid colitis and right hydronephrosis and pyelonephritis, bilateral renal lesions 1.1 cm with recommendation for renal ultrasound syntheses are larger than most renal cyst. She ERICA with creatinine 1.6 which is above her baseline. She was given 2L IVF, IV Levaquin, IV Flagyl in the ED. Blood cultures were taken. Patient was admitted for sepsis secondary to pyelonephritis and possibly colitis as well. She met 2 SIRS criteria for fever and tachycardia. She was admitted on Zosyn. A renal ultrasound showed likely resolved hydronephrosis. She was no longer septic after antibiotics. Blood cultures have remained negative for 3 days. Urine cultures grew Klebsiella pneumoniae. Patient was slowly able to advance diet. Creatinine improved back to baseline. Based on sensitivities she was discharged on Augmentin. She was discharged in stable condition. NOTES TO OUTPATIENT PROVIDER: - Recheck CBC and BMP in 3-5 days.
[2018-04-05 14:33] VITALS: BP 128/70
== END 2018-04-05 15:34 | disposition home or self-care (01) ==
LOC: 3ANU
PROVIDERS: ADMIT Internal Medicine Nephrology; ATTEND Internal Medicine Nephrology

== ENCOUNTER 2019-06-16 14:33 | Inpatient (IN) ==
[2019-06-16] MEDS ORDERED: *HR* OxyCODONE Immed Rel 5 MG TABLET PO PRN ×2 (16:41→17:08)
[2019-06-16] MEDS ORDERED: Ondansetron 4 MG/2 ML VIAL IVP PRN (17:08)
[2019-06-16] MEDS ORDERED: Naloxone 0.4 MG/ML INJ IVP PRN (17:08)
[2019-06-16] MEDS ORDERED: *HR* Dextrose 50 % in Water (Syg) 50 ML SYRINGE IVP PRN (17:14)
[2019-06-16] MEDS ORDERED: D5% in Water 1,000 ML IVC PRN (17:14)
[2019-06-16] MEDS ORDERED: Dextrose Gel 15 GM/37.5 ML TUBE PO PRN ×2 (17:14)
--- NOTE | 2019-06-16 17:30 | Internal Med History&Physical ---
Date of Encounter: 06/16/19 Time of Encounter: 17:20 Internal Medicine - H&P: HPI Chief complaint: left hip fractire Admitted From: Hospital to Hospital Transfer Plans for Post Hospital Care: Home History of present illness: Ms. Kang is a 89 year old female with history of chronic thrombocytopenia, A. fib not on anticoagulation, HFrEF EF 45%, CAD status post PCI 5, HTN, type II DM, iron deficiency anemia, CAD kidney stage III who was transferred from [facility] [place] left hip fracture. Patient was sitting at her recliner when she went to the restroom and fell down on her left side. She denied any seizure-like act ivity, postictal confusion or urinary or bowel incontinence. She did not lose her consciousness. She denied chest pain or shortness of breath. She had no exertional dyspnea and she is active at home as she used to cook, clean and do groceries. Patient follows with cardiology with recent echo showing EF of 45%. She is on Plavix with last dose given today. CT scan of the hip had Brenda Huffman showed left supple Without hip fracture with fractures involving the superior and inferior left pubic rami and left sacrum. Orthopedic surgery is consulted and patient will be taken to OR tomorrow. Past Med Surg Social Fam HX - Past Medical History Source: patient Medical history: arthritis, atrial fibrillation, CHF, coronary artery disease, diabetes, hyperlipidemia, hypertension, myocardial infarction Psychiatric history: anxiety - Past Surgical History Surgical History: angioplasty/stent, cholecystectomy, hysterectomy, other Additional surgical history: Back surgery. Cardiac Stents x 6 - Social History Smoking Status: Never smoker Smokeless Tobacco Status: No Alcohol use: none Drug use: none Current living situation: Home - Independent Activity Level: Independent ambulation Recent Out of Country Travel Within the Last 8 Weeks: No Exposure or Possible Exposure to Illness During Travel: No - Family History Sister Adopted: [place]: Mariah Arriaga Age: 75 Family Member Ethnicity: Non- Living Status: Still Living Hx Family Cardiac Disorders: Yes (HTN) Hx Family Respiratory Disorders: No Hx Family Cancer: No Hx Family GI Disorders: No Hx Family Endocrine Disorder: No Hx Family Neuromuscular Disorders: No Hx Family Neurologic Disorders: No Hx Family HEENT Disorders: No Hx Family Autoimmune Disorders: No - Additional Family History Additional family history: Reviewed and noncontributory Internal Medicine - H&P: Meds Atorvastatin [Lipitor] 40 mg PO HS 01/25/16 [History] Carvedilol [Coreg] 25 mg PO BID 01/25/16 [History] Clopidogrel [Plavix] 75 mg PO DAILY 01/25/16 [History] Isosorbide MONOnitrate [Isosorbide Mononitrate ER] 120 mg PO DAILY 01/25/16 [History] Potassium Chloride [Klor-Con] 20 meq PO DAILY 01/25/16 [History] SitaGLIPtin [Januvia] 100 mg PO DAILY 01/25/16 [History] HYDROcodone/Acet 5/325 mg [[place] 5-325 mg] 1 tab PO Q6H PRN 08/19/16 [History] Folic Acid 1 mg PO DAILY #30 tablet 10/25/16 [Rx] Torsemide [Demadex] 40 mg PO DAILY 365 Days tablet 11/24/16 [Rx] Digoxin [Lanoxin] 0.125 mg PO Q48H 06/19/17 [History] Cyanocobalamin (B-12) [Vitamin B12] 1,000 mcg PO DAILY #90 tablet 11/03/17 [Rx] Omeprazole [PriLOSEC] 20 mg PO BIDAC 30 Days #60 capsule. 03/11/18 [Rx] Aspirin Enteric Coated [Aspirin EC] 81 mg PO DAILY 04/03/18 [History] Glimepiride [Amaryl] 2 mg PO DAILY 04/03/18 [History] Lisinopril 2.5 mg PO DAILY 04/03/18 [History] Nitroglycerin [Nitrostat] 0.4 mg SL Q5M PRN 04/03/18 [History] Sucralfate [Carafate] 1 gm PO QIDAC PRN 03/25/19 [History] Allergy/AdvReac Type Severity Reaction Status Date / Time cephalexin [From Keflex] AdvReac See Verified 03/25/19 11:12 Comments All Systems PM: A 10-system review of systems was performed and is negative for pertinent findings except as documented above in the HPI. - Constitutional Vitals: Temp Pulse Resp BP Pulse Ox 98.4 F 98 16 124/68 93 06/16/19 16:36 06/16/19 16:36 06/16/19 16:36 06/16/19 16:36 06/16/19 16:36 Exam: General: Patient is alert, oriented 3. In mild distress Head: Atraumatic, normal inspection, normocephalic. Eye: EOMI, PERRLA, no scleral icterus noted. ENT: Mucous membranes moist. Neck: Normal inspection, Respiratory: No respiratory distress, rhonchi, or wheezes noted. Cardiovascular: Regular rate and IRregular rhythm, No murmurs, rubs, or gallops. GI: Soft, nondistended, normal bowel sounds. Extremities: LLE is shorter with mild internal rotation. pulses are intact. Neurological: Alert, oriented 3, no focal deficits. Psychiatric: normal affect, normal mood. Skin: Dry, intact, warm. Normal color. No rashes. - Assessment and Plan (1) Hip fracture, left Current Visit: Yes Status: Acute Qualifiers: Encounter type: initial encounter Fracture type: closed Qualified Code(s): S72.002A - Fracture of unspecified part of neck of left femur, initial encounter for closed fracture (2) HFrEF (heart failure with reduced ejection fraction) Current Visit: No Status: Acute Qualifiers: Heart failure chronicity: chronic Qualified Code(s): I50.22 - Chronic systolic (congestive) heart failure (3) Atrial fibrillation Current Visit: Yes Status: Chronic Qualifiers: Atrial fibrillation type: chronic Qualified Code(s): I48.2 - Chronic atrial fibrillation (4) CAD (coronary artery disease) Current Visit: Yes Status: Chronic Qualifiers: Coronary Disease-Associated Artery/Lesion type: [place] artery [place] vs. transplanted heart: [place] heart Associated angina: without angina Qualified Code(s): I25.10 - Atherosclerotic heart disease of [place] coronary artery without angina pectoris (5) CKD (chronic kidney disease) stage 3, GFR 30-59 ml/min Current Visit: Yes Status: Chronic (6) DM type 2 (diabetes mellitus, type 2) Current Visit: Yes Status: Chronic Qualifiers: Diabetes mellitus complication status: with kidney complications Diabetes m crystal complication detail: with chronic kidney disease Chronic kidney disease stage: stage 3 (moderate) Qualified Code(s): E11.22 - Type 2 diabetes mellitus with diabetic chronic kidney disease; N18.3 - Chronic kidney disease, stage 3 (moderate) - Summary of Assessment and Plan Summary of Assessment and Plan: Ms. Kang is a 89 year old female with history of chronic thrombocytopenia, A. fib not on anticoagulation, HFrEF EF 45%, CAD status post PCI 5, HTN, type II DM, iron deficiency anemia, CAD kidney stage III. Symptoms are managed as following. Left hip fracture: s/p fall. Orthopedic surgery contacted, tomorrow for OR. Discussed the nature of the risk with Dr. Castanon, Dr. Mujica will assess the need for cardiology pre-operative clearance however given the nature of her fracture, surgery will be immienet. Patient is aware of the risk and wanted to proceed with the surgery. RCI is 2 points with 10.1% risk of in 30 days. Pain management with oxycodone 5 mg scheduled every 6 hours and 4 mg when necessary for breakthrough pain. Will get EKG and tele bed. Check INR. CKD stage III: Cr is at baseline. T2DM: hold oral medications, on LSSI, ACCU checks TIDAC. A.FIB: Rate controlled, on digoxin q48 hours, last time given was yesterday. resume tomorrow. Not on AC. CAD S/P PCI: hold plavix. Continue with statins. HFrEF: EF 45%, appears euvolemic. Hold torsemide for tomorrow procedure. 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 CBC tomorrow. dvt PPX: heparin sc. - Time Spent With Patient Total time spent is greater than 50% in coordination of care (as documented) at patient's floor/unit and/or counseling patient:
[2019-06-16 17:49] LABS: Eosinophils % 0.4 %; Hemoglobin 8.8 g/dL (11.5-15.4)
[2019-06-16] MEDS: *HR* Heparin 5,000 UNIT/ML VIAL SQ SCH (17:50)
[2019-06-16 17:51] LABS: Basophils % 0.6 %; Hematocrit 29.1 % (35.3-44.9); Immature Granulocytes % 1.3 % (0-4); Immature Platelets 4.2 % (1.1-6.1); Lymphocytes # 0.6 K/mcL (0.6-4.6); Lymphocytes % 10.5 %; Mean Corpuscular HGB Conc 30.2 g/dL (31.6-35.5); Mean Corpuscular Hemoglobin 30.8 pg (28.0-33.3); Mean Corpuscular Volume 101.7 fL (83.0-100.0); Mean Platelet Volume 10.2 fL (9.4-12.4); Monocytes # 0.4 K/mcL (0.0-1.3); Red Blood Count 2.86 M/mcL (3.82-4.97); Red Cell Distribution Width 17.2 % (11.5-14.5); Segmented Neutrophils % 80.2 %; White Blood Count 5.4 K/mcL (4.3-11.1)
[2019-06-16] MEDS: *HR* OxyCODONE Immed Rel 5 MG TABLET PO PRN (17:52)
[2019-06-16 17:54] LABS: Neutrophils # 4.3 K/mcL (1.6-8.9); Platelet Count 92 K/mcL (140-400)
[2019-06-16 18:02] LABS: INR 1.1; Prothrombin Time 12.7 Seconds (9.4-12.1)
[2019-06-16 18:08] LABS: BUN/Creatinine Ratio 34 (6-26); Blood Urea Nitrogen 35 mg/dL (8-23); Calcium 8.6 mg/dL (8.6-10.3); Carbon Dioxide 27 mEq/L (23-29); Chloride 109 mEq/L (98-107); Glucose 215 mg/dL (70-105); Osmolality,Calculated 304 (280-300); Potassium 4.9 mEq/L (3.5-5.1); Sodium 140 mEq/L (136-145); eGFR For African Americans > 60 (> 60); eGFR For Non-African Americans 51 (> 60)
[2019-06-16] MEDS ORDERED: traMADol 50 MG TABLET PO ONE (21:29)
[2019-06-16] MEDS: *HR* OxyCODONE Immed Rel 5 MG TABLET PO SCH (22:42)
[2019-06-17 04:43] LABS: Red Cell Distribution Width 17.1 % (11.5-14.5)
[2019-06-17 04:45] LABS: Hemoglobin 8.1 g/dL (11.5-15.4); Immature Platelets 4.7 % (1.1-6.1); Mean Corpuscular Hemoglobin 31.5 pg (28.0-33.3); Mean Corpuscular Volume 105.1 fL (83.0-100.0); Mean Platelet Volume 10.4 fL (9.4-12.4); Red Blood Count 2.57 M/mcL (3.82-4.97); White Blood Count 4.7 K/mcL (4.3-11.1)
[2019-06-17] MEDS: *HR* Heparin 5,000 UNIT/ML VIAL SQ SCH ×2 (05:05→16:31)
[2019-06-17 05:06] LABS: Calcium 8.6 mg/dL (8.6-10.3); Potassium 5.6 mEq/L (3.5-5.1)
[2019-06-17] MEDS: *HR* OxyCODONE Immed Rel 5 MG TABLET PO SCH ×4 (05:59→17:21)
--- NOTE | 2019-06-17 06:23 | Orthopedics Progress Note ---
Date of Encounter: 06/17/19 Time of Encounter: 06:21 Subjective Interval history: Patient seen this morning, reports long history of left hip pain. Patient reports getting out of a chair yesterday and sustaining a fall. Denies any head trauma. Patient alert and oriented 3. Left lower extremity Shortened external rotated Decreased range of motion secondary to pain Neurovascular intact X-rays show displaced femoral neck fracture with significant left hip arthritis. Recommended surgery is left hip hemiarthroplasty, with patient's history of severe traumatic arthritis, recommendation is total hip replacement. This will be robotic-assisted, We reviewed the risks and benefits as well as recovery. All questions were answered. The patient agreed to this treatment plan and acknowledged an understanding of the treatment plan as described. Objective Vital signs: Vital Signs Temp Pulse Resp BP Pulse Ox 06/17/19 03:30 97.8 F 87 20 100/64 99 06/16/19 22:38 98.2 F 102 20 119/72 99 06/16/19 21:25 98.0 F 97 20 109/63 98 06/16/19 16:36 98.4 F 98 16 124/68 93 Intake and Output 06/16/19 06/16/19 06/17/19 15:59 23:59 07:59 Intake Total 100 / 100 0 / 0 Output Total 50 / 50 Balance 100 / 100 -50 / -50 Intake: Oral 100 / 100 0 / 0 Output: Catheter 50 / 50 Other: Weight 63.4 kg Blood Glucose* 225 - Labs CBC & BMP: 06/17/19 04:06 06/17/19 04:06 Labs: Abnormal lab results RBC 2.57 M/mcL (3.82-4.97) L 06/17/19 04:06 Hgb 8.1 g/dL (11.5-15.4) L 06/17/19 04:06 Hct 27.0 % (35.3-44.9) L 06/17/19 04:06 MCV 105.1 fL (83.0-100.0) H 06/17/19 04:06 MCHC 30.0 g/dL (31.6-35.5) L 06/17/19 04:06 RDW 17.1 % (11.5-14.5) H 06/17/19 04:06 Plt Count 94 K/mcL (140-400) L 06/17/19 04:06 PT 12.7 Seconds (9.4-12.1) H 06/16/19 17:37 Potassium 5.6 mEq/L (3.5-5.1) H 06/17/19 04:06 Chloride 108 mEq/L (98-107) H 06/17/19 04:06 BUN 39 mg/dL (8-23) H 06/17/19 04:06 Est GFR ( Amer) 53 (> 60) L 06/17/19 04:06 Est GFR (Non-Af Amer) 44 (> 60) L 06/17/19 04:06 BUN/Creatinine Ratio 34 (6-26) H 06/17/19 04:06 Glucose 241 mg/dL (70-105) H 06/17/19 04:06 POC Glucose 225 mg/dL (70-99) H 06/16/19 20:41 Calculated Osmolality 305 (280-300) H 06/17/19 04:06 Consult Discharge Plan - Plan Referrals: Tangela Prieto, [employer]NA[employer] [Primary Care Provider] -
[2019-06-17] MEDS ORDERED: Furosemide 20 MG/2 ML VIAL IVP PRN ×2 (06:27→20:55)
[2019-06-17] MEDS ORDERED: *HR* Digoxin 0.125 MG TABLET PO SCH (08:00)
[2019-06-17] MEDS: *HR* OxyCODONE Immed Rel 5 MG TABLET PO PRN (08:21)
[2019-06-17] MEDS: Insulin LISPRO 300 UNITS/3 ML VIAL SQ SCH ×3 (08:21→17:21)
[2019-06-17] MEDS ORDERED: Cyanocobalamin (B-12) 1,000 MCG TABLET PO SCH (09:00)
[2019-06-17] MEDS ORDERED: Folic Acid 1 MG TABLET PO SCH (09:00)
[2019-06-17] MEDS ORDERED: 0.9 % Sodium Chloride 250 ML ONE ×2 (10:00→14:24)
--- NOTE | 2019-06-17 11:34 | Internal Med Progress Note ---
Hospitalist Progress Note - Encounter Date of Encounter: 06/17/19 Time of Encounter: 10:10 - Subjective Interval History: Patient was seen this morning. Her pain is better controlled compared to yesterday. She denied chest pain, shortness of breath or palpitation. She has no nausea/vomiting or abdominal pain. - Exam Vitals: Temp Pulse Resp BP Pulse Ox 97.5 F L 83 16 85/60 98 06/17/19 10:28 06/17/19 10:06/17/19 10:06/17/19 10:06/17/19 10:28 Exam: General: Patient is alert, oriented 3. Head: Atraumatic, normal inspection, normocephalic. Eye: EOMI, PERRLA, no scleral icterus noted. ENT: Mucous membranes moist. Neck: Normal inspection, Respiratory: No respiratory distress, rhonchi, or wheezes noted. Cardiovascular: Regular rate and IRregular rhythm, No murmurs, rubs, or gallops. GI: Soft, nondistended, normal bowel sounds. Extremities: LLE is shorter with mild internal rotation. pulses are intact. Neurological: Alert, oriented 3, no focal deficits. Psychiatric: normal affect, normal mood. Skin: Dry, intact, warm. Normal color. No rashes. - Assessment and Plan (1) Hip fracture, left Current Visit: Yes Status: Acute (2) HFrEF (heart failure with reduced ejection fraction) Current Visit: No Status: Acute (3) Atrial fibrillation Current Visit: Yes Status: Chronic (4) CAD (coronary artery disease) Current Visit: Yes Status: Chronic (5) CKD (chronic kidney disease) stage 3, GFR 30-59 ml/min Current Visit: Yes Status: Chronic (6) DM type 2 (diabetes mellitus, type 2) Current Visit: Yes Status: Chronic - Summary of Assessment and Plan Summary of Assessment and Plan: Ms. Kang is a 89 year old female with history of chronic thrombocytopenia, A. fib not on anticoagulation, HFrEF EF 45%, CAD status post PCI 5, HTN, type II DM, iron deficiency anemia, CAD kidney stage III. Symptoms are managed as following. Left hip fracture: s/p fall. Orthopedic surgery contacted, today for OR. Patient is aware of the risk and wanted to proceed with the surgery. RCI is 2 points with 10.1% risk of in 30 days. Pain management with oxycodone 5 mg scheduled every 6 hours and 4 mg when necessary for breakthrough pain. CKD stage III: Cr is at baseline. T2DM: hold oral medications, on LSSI, ACCU checks TIDAC, levemir 10u added to her list. A.FIB: Rate controlled, on digoxin q48 hours. Not on AC. CAD S/P PCI: hold plavix. Continue with statins. HFrEF: EF 45%, appears euvolemic. 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 CBC tomorrow. Anemia: Chronic, used to receive IV iron infusion as outpatient. Was given 2 units of blood by orthopedic surgery with Lasix. Hyperkalemia: We will give kayexalate. dvt PPX: heparin sc. - Time Spent with Patient Total time spent is greater than 50% in coordination of care (as documented) at patient's floor/unit and/or counseling patient: Plan of Care Discussed with: patient Internal Medicine: Result - Labs CBC & Chem 7: 06/17/19 04:06 06/17/19 04:06 Labs: Short CBC 06/16/19 06/17/19 Range/Units 17:37 04:06 WBC 5.4 4.7 (4.3-11.1) K/mcL Hgb 8.8 L 8.1 L (11.5-15.4) g/dL Hct 29.1 L 27.0 L (35.3-44.9) % Plt Count 92 L 94 L (140-400) K/mcL Neutrophils # 4.3 (1.6-8.9) K/mcL BMP 06/16/19 06/17/19 17:37 04:06 Sodium 140 139 Potassium 4.9 5.6 H Chloride 109 H 108 H Carbon Dioxide 27 27 BUN 35 H 39 H Creatinine 1.02 1.16 Glucose 215 H 241 H Calcium 8.6 8.6 - ABG Interpretation ABG results: PT/INR, D-dimer PT 12.7 Seconds (9.4-12.1) H 06/16/19 17:37 - Impressions Impressions Hip CT 06/17/19 07:25 IMPRESSION: 1. Decreased bone mineral density. 2. Severe left hip osteoarthritis with normal hip alignment. Stable displaced overriding and angulated left femoral neck fracture. 3. Stable nondisplaced left superior/inferior pubic rami fracture. 4. Stable intra-articular buckled nondisplaced left lateral sacral ala fracture. 5. Normal bilateral sacroiliac alignment with symmetric osteoarthritis. D/ / 06/17/2019 07:50:32 Rafiq Stubbs MD / Karen Wagner Interpreting Provider: Rafiq Stubbs MD Consult Discharge Plan - Plan Referrals: Tangela Prieto CNP [Primary Care Provider] - (1) Hip fracture, left Qualifiers: Encounter type: initial encounter Fracture type: closed Qualified Code(s): S72.002A - Fracture of unspecified part of neck of left femur, initial encounter for closed fracture (2) HFrEF (heart failure with reduced ejection fraction) Qualifiers: Heart failure chronicity: chronic Qualified Code(s): I50.22 - Chronic systolic (congestive) heart failure (3) Atrial fibrillation Qualifiers: Atrial fibrillation type: chronic Qualified Code(s): I48.2 - Chronic atrial fibrillation (4) CAD (coronary artery disease) Qualifiers: Coronary Disease-Associated Artery/Lesion type: [place] artery [place] vs. transplanted heart: [place] heart Associated angina: without angina Qualified Code(s): I25.10 - Atherosclerotic heart disease of [place] coronary artery without angina pectoris (6) DM type 2 (diabetes mellitus, type 2) Qualifiers: Diabetes mellitus complication status: with kidney complications Diabetes mellitus complication detail: with chronic kidney disease Chronic kidney disease stage: stage 3 (moderate) Qualified Code(s): E11.22 - Type 2 diabetes mellitus with diabetic chronic kidney disease; N18.3 - Chronic kidney disease, stage 3 (moderate)
--- NOTE | 2019-06-17 17:41 | Anesthesia Evaluation PreOp ---
Date of Encounter: 06/17/19 Time of Encounter: 17:35 - Past History Planned Operation: Robotic Left Hip Fracture Repair Cardiac History: [place], HTN, Hyperlipidemia, Arrhythmia (AFib), Cardiac Stent (Stent X 5), Other (Anemia transfused 2 units PRBC) Pulmonary History: Denies Any Significant HX FIRE SUPPORT MAN History: Denies Any Significant HX Other Medical History: Diabetes Type II Anesthesia History: No Prior Anesthetic Complications : No Test: Negative Alcohol Use: none Drug use: none Medications and Allergies Carvedilol [Coreg] 25 mg PO BID 01/25/16 [History] Clopidogrel [Plavix] 75 mg PO DAILY 01/25/16 [History] Potassium Chloride [Klor-Con] 20 meq PO DAILY 01/25/16 [History] HYDROcodone/Acet 5/325 mg [[place] 5-325 mg] 1 tab PO BID PRN 08/19/16 [History] Folic Acid 1 mg PO DAILY #30 tablet 10/25/16 [Rx] Torsemide [Demadex] 40 mg PO DAILY 365 Days tablet 11/24/16 [Rx] Digoxin [Lanoxin] 0.125 mg PO Q48H 06/19/17 [History] Aspirin Enteric Coated [Aspirin EC] 81 mg PO DAILY 04/03/18 [History] Glimepiride [Amaryl] 2 mg PO DAILY 04/03/18 [History] Lisinopril 2.5 mg PO DAILY 04/03/18 [History] Nitroglycerin [Nitrostat] 0.4 mg SL Q5M PRN 04/03/18 [History] Isosorbide MONOnitrate [Isosorbide Mononitrate ER] 120 mg PO DAILY 06/17/19 [History] Mirtazapine 7.5 mg PO HS 06/17/19 [History] Omeprazole 20 mg PO DAILY 06/17/19 [History] Allergy/AdvReac Type Severity Reaction Status Date / Time cephalexin [From Keflex] AdvReac See Verified 03/25/19 11:12 Comments - Meds/Allergy Pre-op Review Medications Reviewed: Yes Allergies Reviewed: Yes Beta Blockers on Current Med List: No Anesthesia Results - Labs 06/17/19 04:06 06/17/19 04:06 - Imaging EKG: report reviewed (AFib) Additional studies: ECHO EF 45%, severe pulm htn Anesthesia Exam O2 Sat O2 Sat by Pulse Oximetry 99 O2 Sat by Pulse Oximetry 100 O2 Sat by Pulse Oximetry 96 O2 Sat by Pulse Oximetry 98 O2 Sat by Pulse Oximetry 100 O2 Sat by Pulse Oximetry 99 O2 Sat by Pulse Oximetry 99 O2 Sat by Pulse Oximetry 99 O2 Sat by Pulse Oximetry 98 Vital Signs Temp Pulse Resp BP Pulse Ox 98.4 F 98 16 124/68 93 06/16/19 16:36 06/16/19 16:36 06/16/19 16:36 06/16/19 16:36 06/16/19 16:36 Height: 5'7 Weight: 139 lbs NPO (# of Hours): MN Pain Scale: 0 - HEENT Pupil (Motor): Pupils equal, EOMI Mallampati: II Oral Opening: Greater than 3 - FIRE SUPPORT MAN LOC: Oriented FIRE SUPPORT MAN Motor: Normal RUE, Normal LUE, Normal RLE, Normal LLE, Normal Face FIRE SUPPORT MAN Sensory: Normal: RUE, LUE, RLE, LLE, Face - Cardiac Rhythm: Irregular Murmur: None JVD: No Carotid Bruit: No - Pulmonary Breath Sounds: bilateral Clear Respiratory Effort: Symmetrical Anesthesia Assess/Plan ASA Score: 4 (CAD Cardiomyopathy DM), E Level of consciousness: Cooperative, Oriented Anesthetic Plan: General Autologous Blood: No Monitoring Plan: Standard Monitors Recovery Plan: ICU (Discussed GA, agrees to proceed)
[2019-06-17] MEDS ORDERED: Ethanol\\Acetic Acid\\Na Ace\\Ben 1,000 ML IRRIG.SOLN IR ONE ×2 (17:47→19:05)
[2019-06-17] MEDS ORDERED: Heparin 1,000 UNITS/500 mL 500 ML ONE (17:53)
[2019-06-17] MEDS ORDERED: Clindamycin 900 MG/50 ML 900 MG/50 ML IV.SOLN IVPB ONE ×2 (17:54→18:01)
--- NOTE | 2019-06-17 18:10 | Anesthesia Procedures ---
Date of Encounter: 06/17/19 Time of Encounter: 17:40 Procedures: Anesthesia - Arterial Line Consent obtained: written consent Time out performed: Yes Supplemental Oxygen via Nasal Cannula (L/min): 2 Local Anesthetic: Lidocaine 1% Size (Gauge): 20 Length (inches): 1 3/4 Technique Used: sterile prep, guide wire technique, direct puncture technique Patient tolerated procedure: no complications Complications: none Site: Radial L Vitals: Vital Signs/O2 Sat/Glucose, Most Current Temp Pulse Resp BP Pulse Ox 06/17/19 15:01 97.9 F 102 16 118/74 99 06/17/19 14:46 98 F 94 16 116/64 100
--- NOTE | 2019-06-17 19:14 | Orthopedic Operative Note ---
Date of procedure: 06/17/19 Pre-op diagnosis: Left hip fracture left hip arthritis Procedure: Procedure: Left Total Hip Replacment robotic-assisted Estimated blood loss: 200 cc Hardware: Metal and polyethylene replacement. Christine DM Cup: 52 cup Femoral size 5 anteverted Anato stem Head: 8 head with Emma Procedural Notes: Grade 4 arthritic changes femoral head acetabular socket, displaced femoral neck fracture procedure performed with robotic assistance. Operative leg 22 mm short as measured by preoperative CT scan secondary to fracture. Operative procedure: The patient was brought to the operating room and placed on the operating room table. After anesthesia was administered the patient was placed in the lateral decubitus position with the operative leg up. All pressure points were padded appropriately and the head was stabilized in the neutral position. The operative extremity was prepped and draped in the sterile surgical fashion patient received IV antibiotic prior to skin incision. 3 Steinmann pins were placed in the iliac crest 3 cm proximal to the anterior superior iliac spine this was for the robotic-assisted sensor. This was done through a small 2 cm incision. A standard posterior approach is made to the operative hip, the incision was made through the skin and subcutaneous tissue hemostasis was obtained with Bovie cautery. Using careful sharp dissection the fascia was identified and incised exposing the external rotators. The greater trochanter was marked, and length was measured at this time utilizing robotic assistance. The external rotators were released off the greater trochanter and tagged with #2 FiberWire suture. The capsule was T'd open and the hip was brought into internal rotation. Patient had an obvious femoral neck fracture. Femoral neck cut was made at the appropriate level. Patient noted to have grade 4 arthritic changes femoral head. An anterior capsulotomy was performed for the anterior retractor. Soft tissues removed from the acetabulum. Patient noted to have grade 4 arthritic ch anges acetabulum. The acetabulum reference point was confirmed. The acetabulum was then mapped with robotic assistance. Based on the preoperative plan the acetabulum was reamed in one step with a 52 reamer. The 52 acetabulum was impacted with robotic assistance and 38 degrees of abduction and 19 degrees of anteversion. The hip was brought back in to internal rotation and prepared with the box order person followed by the canal finder followed by the reaming process to a size 12 broaching process in 20 degrees anteversion. It was broached up to the appropriate size 4 Trial reduction revealed leg lengths close to normal. The femoral implant was impacted in place in 20 degrees of anteversion. Trial reduction found the hip to be stable with 8 head and Emma. The trials were removed and the real implants were impacted in place. The hip was reduced, patient had robotic confirmed leg length of 4 mm longer than the contralateral side. The hip had excellent stability with forward flexion to 90 degrees adduction of 30 degrees and internal rotation of 60 degrees. The hip had no shuck. The hip sat with an antibacterial solution. It was irrigated out with 2 L of pulse irrigation. The Steinmann pins were removed. The hip was closed by the PA. Over a RINKU drain. The deep tissue was irrigated and closed deep with #1 PDS suture superficially with 0 PDS suture and skin was closed with skin julieta and zip tie. The patient was placed in a sterile dressing and abduction pillow. The patient was transferred to the recovery room in stable condition. Anesthesia: GETA Surgeon: Gentry Mujica Was there an communication assistant present: Yes Starter Cup Powder Mixer: David Mcgregor Estimated blood loss (cc): 200 Condition: stable Disposition: PACU
[2019-06-17] MEDS ORDERED: Acetaminophen IV 1,000 MG/100 ML INFUS..BTL ONE (19:32)
[2019-06-17] MEDS ORDERED: Ondansetron 4 MG/2 ML VIAL IVP ONE (20:06)
[2019-06-17] MEDS ORDERED: Morphine Sulfate 2 MG/ML SYRINGE IVP PRN (20:06)
[2019-06-17] MEDS ORDERED: Naloxone 0.4 MG/ML INJ IVP PRN (20:55)
[2019-06-17] MEDS ORDERED: MOM Conc 10 ML UD.LIQ PO PRN (20:55)
[2019-06-17] MEDS ORDERED: Sennosides 8.6 MG TABLET PO PRN (20:55)
[2019-06-17] MEDS ORDERED: Temazepam 15 MG CAPSULE PO PRN (20:55)
[2019-06-17] MEDS ORDERED: Dextrose Gel 15 GM/37.5 ML TUBE PO PRN ×2 (20:55)
[2019-06-17] MEDS ORDERED: *HR* Promethazine 25 MG/ML VIAL IVP PRN (20:55)
[2019-06-17] MEDS ORDERED: Ondansetron 4 MG/2 ML VIAL IVP PRN (20:55)
[2019-06-17] MEDS ORDERED: D5% in Water 1,000 ML IVC PRN (20:55)
[2019-06-17] MEDS ORDERED: *HR* Dextrose 50 % in Water (Syg) 50 ML SYRINGE IVP PRN (20:55)
[2019-06-17] MEDS ORDERED: Insulin DETEMIR 100 UNIT/ML X5UNITS SQ SCH (21:00)
[2019-06-17 21:04] LABS: Hematocrit 31.5 % (35.3-44.9)
[2019-06-17 21:10] LABS: Hemoglobin 9.7 g/dL (11.5-15.4)
[2019-06-17] MEDS: Ringers Solution, Lactated 1,000 ML IVC SCH (21:12)
[2019-06-17] MEDS: Insulin DETEMIR 100 UNIT/ML X5UNITS SQ SCH (21:14)
[2019-06-17] MEDS: Clindamycin 900 MG/50 ML 900 MG/50 ML IV.SOLN IVPB SCH (23:59)
[2019-06-18 02:17] LABS: Basophils % 0.4 %; Hemoglobin 10.6 g/dL (11.5-15.4)
[2019-06-18 02:19] LABS: Eosinophils # 0.2 K/mcL (0.0-0.6); Eosinophils % 1.9 %; Hematocrit 34.6 % (35.3-44.9); Immature Granulocytes % 0.4 % (0-4); Immature Platelets 5.5 % (1.1-6.1); Lymphocytes # 0.7 K/mcL (0.6-4.6); Lymphocytes % 8.5 %; Mean Corpuscular HGB Conc 30.6 g/dL (31.6-35.5); Mean Corpuscular Hemoglobin 30.3 pg (28.0-33.3); Mean Corpuscular Volume 98.9 fL (83.0-100.0); Mean Platelet Volume 10.7 fL (9.4-12.4); Monocytes # 0.7 K/mcL (0.0-1.3); Monocytes % 8.5 %; Platelet Count 100 K/mcL (140-400); Red Cell Distribution Width 20.6 % (11.5-14.5); Segmented Neutrophils % 80.3 %; White Blood Count 7.9 K/mcL (4.3-11.1)
[2019-06-18 02:27] LABS: Neutrophils # 6.3 K/mcL (1.6-8.9)
[2019-06-18] MEDS: HYDROcodone BIT/Homatropine 5 MG TABLET PO PRN ×2 (03:15→23:23)
[2019-06-18 03:19] LABS: Calcium 8.2 mg/dL (8.6-10.3); Potassium 5.1 mEq/L (3.5-5.1)
--- NOTE | 2019-06-18 06:18 | Orthopedics Progress Note ---
Date of Encounter: 06/18/19 Time of Encounter: 06:18 Subjective Interval history: Patient was seen this morning doing well without complaints. Afebrile vital signs stable. Operative extremity: Neurovascularly intact Dressing clean dry and intact Calves nontender Assessment and plan: Continue with postoperative care Hematocrit 34. Objective Vital signs: Vital Signs Temp Pulse Resp BP Pulse Ox 06/18/19 03:12 98.6 F 100 16 104/60 100 06/18/19 01:00 97.8 F 91 15 115/63 99 06/18/19 00:00 98.0 F 91 15 114/68 100 06/17/19 23:03 98.8 F 89 17 111/73 98 06/17/19 22:00 98.0 F 93 15 108/71 100 06/17/19 21:30 98.1 F 90 16 103/66 100 06/17/19 21:20 100 06/17/19 21:00 98.1 F 88 16 104/66 100 06/17/19 20:43 98.6 F 94 14 116/64 100 06/17/19 20:33 90 14 117/66 100 06/17/19 20:23 98.6 F 86 14 118/50 100 06/17/19 20:13 81 14 106/48 100 06/17/19 20:03 83 14 100/61 100 06/17/19 19:53 97.6 F 87 14 95/53 99 06/17/19 15:01 97.9 F 102 16 118/74 99 06/17/19 14:46 98 F 94 16 116/64 100 06/17/19 13:40 97.5 F L 93 16 120/74 06/17/19 11:10 97.8 F 87 16 112/66 96 06/17/19 10:28 97.5 F L 83 16 85/60 98 06/17/19 10:13 97.6 F 83 18 100/62 100 06/17/19 08:28 98.1 F 90 18 111/68 99 Intake and Output 06/17/19 06/17/19 06/18/19 15:59 23:59 07:59 Intake Total 350 / 350 50 / 50 Output Total 500 / 1170 620 / 1170 75 / 75 Balance -150 / -820 -620 / -820 -25 / -25 Intake: IV Fluids 50 / 50 Cleocin Premix 900 MG/50 ML 900 50 / 50 mg In 50 ml @ 50 mls/hr IVPB Q8HR [facility] Rx#:[id number] Blood Product 350 / 350 Rbcs Leuko Poor As-1 Unit 350 / 350 [id number] Rbcs Leuko Poor As-1 Unit 0 / 0 [id number] Output: Estimated Blood Loss 200 / 200 Urine Amount (Catheter) 300 / 300 Catheter 500 / 550 Wound Drainage 120 / 120 75 / 75 Left Hip 50 / 50 75 / 75 Other: Weight 63.5 kg Blood Glucose* 156 179 Patient Weight 06/18/19 23:59 Weight 63.5 kg - Labs CBC & BMP: 06/18/19 01:28 06/18/19 01:28 Labs: Abnormal lab results RBC 3.50 M/mcL (3.82-4.97) L 06/18/19 01:28 Hgb 10.6 g/dL (11.5-15.4) L 06/18/19 01:28 Hct 34.6 % (35.3-44.9) L 06/18/19 01:28 MCV 105.1 fL (83.0-100.0) H 06/17/19 04:06 MCHC 30.6 g/dL (31.6-35.5) L 06/18/19 01:28 RDW 20.6 % (11.5-14.5) H 06/18/19 01:28 Plt Count 100 K/mcL (140-400) L 06/18/19 01:28 PT 12.7 Seconds (9.4-12.1) H 06/16/19 17:37 Potassium 5.6 mEq/L (3.5-5.1) H 06/17/19 04:06 Chloride 108 mEq/L (98-107) H 06/18/19 01:28 Carbon Dioxide 20 mEq/L (23-29) L 06/18/19 01:28 BUN 43 mg/dL (8-23) H 06/18/19 01:28 Creatinine 1.49 mg/dL (0.60-1.20) H 06/18/19 01:28 Est GFR ( Amer) 40 (> 60) L 06/18/19 01:28 Est GFR (Non-Af Amer) 33 (> 60) L 06/18/19 01:28 BUN/Creatinine Ratio 29 (6-26) H 06/18/19 01:28 Glucose 184 mg/dL (70-105) H 06/18/19 01:28 POC Glucose 179 mg/dL (70-99) H 06/17/19 21:04 Calculated Osmolality 302 (280-300) H 06/18/19 01:28 Calcium 8.2 mg/dL (8.6-10.3) L 06/18/19 01:28 Crossmatch See Detail 06/17/19 06:42 Consult Discharge Plan - Plan Referrals: Tangela Prieto, HYDRO MECHANIC [Primary Care Provider] -
[2019-06-18] MEDS: *HR* OxyCODONE Immed Rel 5 MG TABLET PO PRN (08:30)
[2019-06-18] MEDS: Ascorbic Acid 500 MG TABLET PO SCH ×2 (08:30→17:07)
[2019-06-18] MEDS: Cyanocobalamin (B-12) 1,000 MCG TABLET PO SCH (08:30)
[2019-06-18] MEDS: Folic Acid 1 MG TABLET PO SCH (08:31)
[2019-06-18] MEDS: Clindamycin 900 MG/50 ML 900 MG/50 ML IV.SOLN IVPB SCH (08:31)
[2019-06-18] MEDS: Multivit/Ca/Min/Fe/FA 1 TAB TABLET PO SCH (08:31)
[2019-06-18] MEDS: Insulin LISPRO 300 UNITS/3 ML VIAL SQ SCH ×3 (08:37→17:18)
[2019-06-18] MEDS: Ringers Solution, Lactated 1,000 ML IVC SCH ×3 (10:47→23:41)
--- NOTE | 2019-06-18 12:52 | Internal Med Progress Note ---
Hospitalist Progress Note - Encounter Date of Encounter: 06/18/19 Time of Encounter: 09:20 - Subjective Interval History: Patient was seen this morning, she looks tired and fatigued. She is a complaining about pain in the back and the hip. She denied nausea/vomiting or abdominal pain. She ate a few bites of her breakfast. - Exam Vitals: Temp Pulse Resp BP Pulse Ox 97.9 F 90 16 110/71 100 06/18/19 06:39 06/18/19 06:39 06/18/19 06:39 06/18/19 06:39 06/18/19 06:39 Exam: General: Patient is alert, oriented 3. Mild distress Head: Atraumatic, normal inspection, normocephalic. Eye: EOMI, PERRLA, no scleral icterus noted. ENT: Mucous membranes moist. Neck: Normal inspection, Respiratory: No respiratory distress, rhonchi, or wheezes noted. Cardiovascular: Regular rate and IRregular rhythm, No murmurs, rubs, or gallops. GI: Soft, nondistended, normal bowel sounds. Extremities: LLE is shorter with mild internal rotation. pulses are intact. Neurological: Alert, oriented 3, no focal deficits. Psychiatric: normal affect, normal mood. Skin: Dry, intact, warm. Normal color. No rashes. - Assessment and Plan (1) Hip fracture, left Current Visit: Yes Status: Acute (2) HFrEF (heart failure with reduced ejection fraction) Current Visit: No Status: Acute (3) Atrial fibrillation Current Visit: Yes Status: Chronic (4) CAD (coronary artery disease) Current Visit: Yes Status: Chronic (5) CKD (chronic kidney disease) stage 3, GFR 30-59 ml/min Current Visit: Yes Status: Chronic (6) DM type 2 (diabetes mellitus, type 2) Current Visit: Yes Status: Chronic - Summary of Assessment and Plan Summary of Assessment and Plan: Ms. Kang is a 89 year old female with history of chronic thrombocytopenia, A. fib not on anticoagulation, HFrEF EF 45%, CAD status post PCI 5, HTN, type II DM, iron deficiency anemia, CAD kidney stage III. Symptoms are managed as following. Left hip fracture: POD-1, S/P THR, orthopedic surgery is on board. Management as per them. ERICA on CKD stage III: Cr 1.4, Bl ~ 1. continue with IVF. CHECK BMP tomorrow. Hold toresmide. T2DM: hold oral medications, on LSSI, ACCU checks TIDAC, levemir 10u added to her list. A.FIB: Rate controlled, on digoxin q48 hours. Not on AC. CAD S/P PCI: hold plavix. Continue with statins. HFrEF: EF 45%, appears euvolemic. 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 CBC tomorrow. Anemia: Chronic, used to receive IV iron infusion as outpatient. Was given 1 units of blood preoperatively. Hyperkalemia: Resolved. dvt PPX: heparin sc. - Time Spent with Patient Total time spent is greater than 50% in coordination of care (as documented) at patient's floor/unit and/or counseling patient: Plan of Care Discussed with: patient Internal Medicine: Result - Labs CBC & Chem 7: 06/18/19 01:28 06/18/19 01:28 Labs: Short CBC 06/17/19 06/18/19 Range/Units 20:33 01:28 WBC 7.9 D (4.3-11.1) K/mcL Hgb 9.7 L D 10.6 L (11.5-15.4) g/dL Hct 31.5 L 34.6 L (35.3-44.9) % Plt Count 100 L (140-400) K/mcL Neutrophils # 6.3 (1.6-8.9) K/mcL BMP 06/18/19 01:28 Sodium 138 Potassium 5.1 Chloride 108 H Carbon Dioxide 20 L BUN 43 H Creatinine 1.49 H Glucose 184 H Calcium 8.2 L - ABG Interpretation ABG results: PT/INR, D-dimer PT 12.7 Seconds (9.4-12.1) H 06/16/19 17:37 - Impressions Impressions Hip X-Ray 06/17/19 22:20 IMPRESSION: Status post left hip arthroplasty. D/ / 06/17/2019 23:18:59 Curt Case MD / juan Interpreting Provider: Curt Case MD Consult Discharge Plan - Plan Referrals: Tangela Prieto, INSTRUCTOR T[employer] DANCING [Primary Care Provider] - (1) Hip fracture, left Qualifiers: Encounter type: initial encounter Fracture type: closed Qualified Code(s): S72.002A - Fracture of unspecified part of neck of left femur, initial encounter for closed fracture (2) HFrEF (heart failure with reduced ejection fraction) Qualifiers: Heart failure chronicity: chronic Qualified Code(s): I50.22 - Chronic systolic (congestive) heart failure (3) Atrial fibrillation Qualifiers: Atrial fibrillation type: chronic Qualified Code(s): I48.2 - Chronic atrial fibrillation (4) CAD (coronary artery disease) Qualifiers: Coronary Disease-Associated Artery/Lesion type: [place] artery [place] vs. transplanted heart: [place] heart Associated angina: without angina Qualified Code(s): I25.10 - Atherosclerotic heart disease of [place] coronary artery without angina pectoris (6) DM type 2 (diabetes mellitus, type 2) Qualifiers: Diabetes mellitus complication status: with kidney complications Diabetes mellitus complication detail: with chronic kidney disease Chronic kidney disease stage: stage 3 (moderate) Qualified Code(s): E11.22 - Type 2 diabetes mellitus with diabetic chronic kidney disease; N18.3 - Chronic kidney disease, stage 3 (moderate)
--- NOTE | 2019-06-18 16:04 | Event Note ---
Date of Encounter: 06/18/19 Time of Encounter: 12:10 PCR - POD#1 s/p left THR 06/17/19 (secondary to fracture) Patient seen at bedside, without complaints other than pain in hip. A&O x 3 Afebrile, vital signs stable. Dressings c/d/i, no calf tenderness to palpation, good dorsiflexion of foot, sensation intact distally. RINKU drain in place to left hip with roughly 50ml currently in drain. 125ml so far today Labs reviewed. H/H - improved to 10.6/34.6 after receiving 2 units RBC transfusion yesterday Pain control: adequate Participating in PT. All questions and concerns addressed. Educated on use of incentive spirometer. Encouraged ambulation and proper hydration. Patient educated on post-operative restrictions and post-operative care. Assessment and plan: Continue with postoperative care Discharge plan: ECF with medically cleared.
[2019-06-18] MEDS: *HR* Heparin 5,000 UNIT/ML VIAL SQ SCH (17:14)
[2019-06-18] MEDS: Insulin DETEMIR 100 UNIT/ML X5UNITS SQ SCH (23:23)
[2019-06-19] MEDS: HYDROcodone BIT/Homatropine 5 MG TABLET PO PRN ×2 (05:56→12:38)
[2019-06-19] MEDS: *HR* Heparin 5,000 UNIT/ML VIAL SQ SCH (05:56)
[2019-06-19 06:40] LABS: Basophils % 0.2 %; Red Cell Distribution Width 19.2 % (11.5-14.5)
[2019-06-19 06:41] LABS: Eosinophils # 0.1 K/mcL (0.0-0.6); Eosinophils % 1.8 %; Hematocrit 32.9 % (35.3-44.9); Hemoglobin 9.8 g/dL (11.5-15.4); Immature Granulocytes % 0.5 % (0-4); Immature Platelets 6.4 % (1.1-6.1); Lymphocytes # 0.6 K/mcL (0.6-4.6); Lymphocytes % 10.2 %; Mean Corpuscular HGB Conc 29.8 g/dL (31.6-35.5); Mean Corpuscular Hemoglobin 29.7 pg (28.0-33.3); Mean Corpuscular Volume 99.7 fL (83.0-100.0); Mean Platelet Volume 10.9 fL (9.4-12.4); Monocytes # 0.5 K/mcL (0.0-1.3); Monocytes % 8.9 %; Neutrophils # 4.8 K/mcL (1.6-8.9); Segmented Neutrophils % 78.4 %; White Blood Count 6.1 K/mcL (4.3-11.1)
[2019-06-19 06:47] LABS: Platelet Count 87 K/mcL (140-400)
[2019-06-19 07:02] LABS: Calcium 8.4 mg/dL (8.6-10.3); Potassium 4.9 mEq/L (3.5-5.1)
[2019-06-19] MEDS: Insulin LISPRO 300 UNITS/3 ML VIAL SQ SCH ×3 (07:58→17:23)
[2019-06-19] MEDS: *HR* Digoxin 0.125 MG TABLET PO SCH (09:28)
[2019-06-19] MEDS: Folic Acid 1 MG TABLET PO SCH (09:28)
[2019-06-19] MEDS: Multivit/Ca/Min/Fe/FA 1 TAB TABLET PO SCH (09:29)
[2019-06-19] MEDS: Cyanocobalamin (B-12) 1,000 MCG TABLET PO SCH (09:29)
[2019-06-19] MEDS: Ascorbic Acid 500 MG TABLET PO SCH ×2 (09:29→17:45)
[2019-06-19] MEDS: traMADol 50 MG TABLET PO PRN ×2 (09:40→21:10)
--- NOTE | 2019-06-19 10:27 | Internal Med Progress Note ---
Hospitalist Progress Note - Encounter Date of Encounter: 06/19/19 Time of Encounter: 10:30 - Subjective Interval History: Patient was seen this morning. She slept well overnight but still complaining about left hip pain. She denied abdominal pain, nausea or vomiting. She has no shortness of breath, dyspnea on palpitation. She ate a few bites of her breakfast. - Exam Vitals: Temp Pulse Resp BP Pulse Ox 98.8 F 92 16 128/85 98 06/19/19 06:43 06/19/19 06:43 06/19/19 06:43 06/19/19 06:43 06/19/19 06:43 Exam: General: Patient is alert, oriented 3. Mild distress Head: Atraumati. Eye: EOMI, PERRLA, no scleral icterus noted. ENT: Mucous membranes moist. Neck: Normal inspection, Respiratory: No respiratory distress, rhonchi, or wheezes noted. Cardiovascular: Regular rate and IRregular rhythm, GI: Soft, nondistended, normal bowel sounds. Extremities: LLE is shorter with mild internal rotation. pulses are intact. Neurological: Alert, oriented 3, no focal deficits. Psychiatric: normal affect, normal mood. Skin: Dry, intact, warm. Normal color. No rashes. - Assessment and Plan (1) Hip fracture, left Current Visit: Yes Status: Acute (2) HFrEF (heart failure with reduced ejection fraction) Current Visit: No Status: Acute (3) Atrial fibrillation Current Visit: Yes Status: Chronic (4) CAD (coronary artery disease) Current Visit: Yes Status: Chronic (5) CKD (chronic kidney disease) stage 3, GFR 30-59 ml/min Current Visit: Yes Status: Chronic (6) DM type 2 (diabetes mellitus, type 2) Current Visit: Yes Status: Chronic (7) Severe protein-calorie malnutrition Current Visit: Yes Status: Acute - Summary of Assessment and Plan Summary of Assessment and Plan: Ms. Kang is a 89 year old female with history of chronic thrombocytopenia, A. fib not on anticoagulation, HFrEF EF 45%, CAD status post PCI 5, HTN, type II DM, iron deficiency anemia, CAD kidney stage III. Symptoms are managed as following. Left hip fracture: POD-2, S/P THR, orthopedic surgery is on board. Management a s per them. PT/OT are consulted ERICA on CKD stage III: Cr 1.6, Bl ~ 1. continue with IVF. CHECK BMP tomorrow. Hold toresmide. UA and UCx ordered. T2DM: hold oral medications, on LSSI, ACCU checks TIDAC, levemir 10u added to her list. A.FIB: Rate controlled, on digoxin q48 hours. Not on AC. CAD S/P PCI: continue plavix/asa and statins. HFrEF: EF 45%, appears hypovloemic. 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 CBC tomorrow. Anemia: Chronic, used to receive IV iron infusion as outpatient. Was given 1 units of blood preoperatively. Severe protein-calorie malnutrition: Dietitians is on board, continue Megace. Hyperkalemia: Resolved. dvt PPX: SCD - Time Spent with Patient Total time spent is greater than 50% in coordination of care (as documented) at patient's floor/unit and/or counseling patient: Plan of Care Discussed with: patient Internal Medicine: Result - Labs CBC & Chem 7: 06/19/19 06:14 06/19/19 06:14 Labs: Short CBC 06/19/19 Range/Units 06:14 WBC 6.1 (4.3-11.1) K/mcL Hgb 9.8 L (11.5-15.4) g/dL Hct 32.9 L (35.3-44.9) % Plt Count 87 L (140-400) K/mcL Neutrophils # 4.8 (1.6-8.9) K/mcL BMP 06/19/19 06:14 Sodium 136 Potassium 4.9 Chloride 104 Carbon Dioxide 25 BUN 51 H Creatinine 1.65 H Glucose 104 Calcium 8.4 L - ABG Interpretation ABG results: PT/INR, D-dimer PT 12.7 Seconds (9.4-12.1) H 06/16/19 17:37 Consult Discharge Plan - Plan Referrals: Tangela Prieto, DIRECTOR OF IN SERVICE EDUCATION [Primary Care Provider] - (1) Hip fracture, left Qualifiers: Encounter type: initial encounter Fracture type: closed Qualified Code(s): S72.002A - Fracture of unspecified part of neck of left femur, initial encounter for closed fracture (2) HFrEF (heart failure with reduced ejection fraction) Qualifiers: Heart failure chronicity: chronic Qualified Code(s): I50.22 - Chronic systolic (congestive) heart failure (3) Atrial fibrillation Qualifiers: Atrial fibrillation type: chronic Qualified Code(s): I48.2 - Chronic atrial fibrillation (4) CAD (coronary artery disease) Qualifiers: Coronary Disease-Associated Artery/Lesion type: [place] artery [place] vs. transplanted heart: [place] heart Associated angina: without angina Qualified Code(s): I25.10 - Atherosclerotic heart disease of [place] coronary artery without angina pectoris (6) DM type 2 (diabetes mellitus, type 2) Qualifiers: Diabetes mellitus complication status: with kidney complications Diabetes mellitus complication detail: with chronic kidney disease Chronic kidney disease stage: stage 3 (moderate) Qualified Code(s): E11.22 - Type 2 diabetes mellitus with diabetic chronic kidney disease; N18.3 - Chronic kidney disease, stage 3 (moderate)
[2019-06-19] MEDS: Aspirin Enteric Coated 81 MG Tablet PO SCH (12:38)
--- NOTE | 2019-06-19 13:13 | Event Note ---
Date of Encounter: 06/19/19 Time of Encounter: 12:10 PCR - POD#2 s/p left THR 06/17/19 (secondary to fracture) Patient seen at bedside, without complaints other than pain in hip, states a little better today and tolerable with medication. A&O x 3 Afebrile, vital signs stable. Dressings had small amount bleeding noted to posterior end similar to yesterday, no significant increase in bleeding from surery site. no calf tenderness to palpation, good dorsiflexion of foot, sensation intact distally. RINKU drain in place to left hip 175ml total for 06/18, 40ml so far today Labs reviewed. H/H - improved to 9.8/32.9 - received 2 units RBC transfusion 06/17 Pain control: adequate Participating in PT. All questions and concerns addressed. Educated on use of incentive spirometer. Encouraged ambulation and proper hydration. Patient educated on post-operative restrictions and post-operative care. Assessment and plan: Continue with postoperative care Discharge plan: ECF with medically cleared.
[2019-06-19] MEDS ORDERED: *HR* Phenylephrine 10 MG/ML VIAL ONE (15:02)
[2019-06-19] MEDS ORDERED: *HR* Etomidate 40 MG/20 ML VIAL IVP ONE (15:02)
[2019-06-19] MEDS ORDERED: Lidocaine -MPF 2% 2 ML VIAL ONE ×2 (15:02)
[2019-06-19] MEDS ORDERED: Lidocaine -MPF 4% 5 ML AMPUL ONE (15:02)
[2019-06-19] MEDS ORDERED: Tranexamic Acid 1,000 MG/10 ML VIAL ONE (15:02)
[2019-06-19] MEDS ORDERED: *HR* PHENYLEPHRINE 1,000 MCG/10 ML SYRINGE IVP ONE (15:02)
[2019-06-19] MEDS ORDERED: Ondansetron 4 MG/2 ML VIAL ONE (15:02)
[2019-06-19] MEDS ORDERED: *HR* Propofol 200 MG/20 ML VIAL IVP ONE (15:02)
[2019-06-19] MEDS: Mirtazapine 15 MG TABLET PO SCH (20:55)
[2019-06-19] MEDS: Insulin DETEMIR 100 UNIT/ML X5UNITS SQ SCH (20:56)
[2019-06-19] MEDS: Ringers Solution, Lactated 1,000 ML IVC SCH ×2 (21:11→21:35)
[2019-06-20 06:44] LABS: Mean Corpuscular Volume 95.5 fL (83.0-100.0); Red Cell Distribution Width 18.4 % (11.5-14.5)
[2019-06-20 06:46] LABS: Hematocrit 29.5 % (35.3-44.9); Hemoglobin 9.4 g/dL (11.5-15.4); Immature Platelets 5.4 % (1.1-6.1); Mean Corpuscular HGB Conc 31.9 g/dL (31.6-35.5); Mean Corpuscular Hemoglobin 30.4 pg (28.0-33.3); Mean Platelet Volume 10.3 fL (9.4-12.4); Red Blood Count 3.09 M/mcL (3.82-4.97); White Blood Count 5.6 K/mcL (4.3-11.1)
[2019-06-20 07:04] LABS: BUN/Creatinine Ratio 39 (6-26); Blood Urea Nitrogen 41 mg/dL (8-23); Calcium 8.3 mg/dL (8.6-10.3); Carbon Dioxide 26 mEq/L (23-29); Chloride 100 mEq/L (98-107); Glucose 71 mg/dL (70-105); Osmolality,Calculated 285 (280-300); Potassium 4.4 mEq/L (3.5-5.1); Sodium 133 mEq/L (136-145); eGFR For African Americans > 60 (> 60); eGFR For Non-African Americans 50 (> 60)
[2019-06-20] MEDS: Insulin LISPRO 300 UNITS/3 ML VIAL SQ SCH ×3 (07:50→17:07)
[2019-06-20] MEDS: traMADol 50 MG TABLET PO PRN (08:32)
[2019-06-20] MEDS: Folic Acid 1 MG TABLET PO SCH (08:33)
[2019-06-20] MEDS: Cyanocobalamin (B-12) 1,000 MCG TABLET PO SCH (08:33)
[2019-06-20] MEDS: Multivit/Ca/Min/Fe/FA 1 TAB TABLET PO SCH (08:33)
[2019-06-20] MEDS: Aspirin Enteric Coated 81 MG Tablet PO SCH (08:33)
[2019-06-20] MEDS: Ascorbic Acid 500 MG TABLET PO SCH ×2 (08:33→17:30)
[2019-06-20] MEDS: Ringers Solution, Lactated 1,000 ML IVC SCH (08:34)
--- NOTE | 2019-06-20 10:49 | Internal Med Progress Note ---
Hospitalist Progress Note - Encounter Date of Encounter: 06/20/19 Time of Encounter: 09:40 - Subjective Interval History: No major events overnight. Patient was seen this a.m. s He denied fever, chills or night sweats. sHe has no nausea, vomiting or abdominal pain. Patient denied chest pain, shortness of breath or palpitation. She is a complaining about her hip pain, she started eating more today. She did not have bowel movement yet. - Exam Vitals: Temp Pulse Resp BP Pulse Ox 98.9 F 91 17 130/75 100 06/20/19 07:33 06/20/19 07:33 06/20/19 07:33 06/20/19 07:33 06/20/19 07:33 Exam: General: Patient is alert, oriented 3. Mild distress Head: Atraumati. Eye: EOMI, PERRLA, no scleral icterus noted. ENT: Mucous membranes moist. Neck: Normal inspection, Respiratory: No respiratory distress, rhonchi, or wheezes noted. Cardiovascular: Regular rate and IRregular rhythm, GI: Soft, nondistended, normal bowel sounds. Extremities: LLE is shorter with mild internal rotation. pulses are intact. Neurological: Alert, oriented 3, no focal deficits. Strength is 4/5 in upper extremities Psychiatric: normal affect, normal mood. Skin: Dry, intact, warm. Normal color. No rashes. - Assessment and Plan (1) Hip fracture, left Current Visit: Yes Status: Acute (2) HFrEF (heart failure with reduced ejection fraction) Current Visit: No Status: Acute (3) Atrial fibrillation Current Visit: Yes Status: Chronic (4) CAD (coronary artery disease) Current Visit: Yes Status: Chronic (5) CKD (chronic kidney disease) stage 3, GFR 30-59 ml/min Current Visit: Yes Status: Chronic (6) DM type 2 (diabetes mellitus, type 2) Current Visit: Yes Status: Chronic (7) Severe protein-calorie malnutrition Current Visit: Yes Status: Acute - Summary of Assessment and Plan Summary of Assessment and Plan: Ms. Kang is a 89 year old female with history of chronic thrombocytopenia, A. fib not on anticoagulation, HFrEF EF 45%, CAD status post PCI 5, HTN, type II DM, iron deficiency anemia, CAD kidney stage III. Symptoms are managed as following. Left hip fracture: POD-3, S/P THR, orthopedic surgery is on board. Management as per them. PT/OT on board. On bowel regimen. ERICA on CKD stage III: resolved. will finish IVF today, improved oral intake. T2DM: hold oral medications, on levemir LSSI, ACCU checks TIDAC. A.FIB: Rate controlled, on digoxin q48 hours. Not on AC. CAD S/P PCI: continue plavix/asa and statins. HFrEF: EF 45%, appears hypovloemic. 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 CBC tomorrow. Anemia: Chronic, used to receive IV iron infusion as outpatient. Was given 2 units of blood preoperatively. Severe protein-calorie malnutrition: Dietitians is on board, continue Megace. dvt PPX: SCD - Time Spent with Patient Total time spent is greater than 50% in coordination of care (as documented) at patient's floor/unit and/or counseling patient: Plan of Care Discussed with: patient Internal Medicine: Result - Labs CBC & Chem 7: 06/20/19 06:02 06/20/19 06:02 Labs: Short CBC 06/20/19 Range/Units 06:02 WBC 5.6 (4.3-11.1) K/mcL Hgb 9.4 L (11.5-15.4) g/dL Hct 29.5 L (35.3-44.9) % Plt Count 91 L (140-400) K/mcL BMP 06/20/19 06:02 Sodium 133 L Potassium 4.4 Chloride 100 Carbon Dioxide 26 BUN 41 H Creatinine 1.04 Glucose 71 Calcium 8.3 L - ABG Interpretation ABG results: PT/INR, D-dimer PT 12.7 Seconds (9.4-12.1) H 06/16/19 17:37 Consult Discharge Plan - Plan Referrals: Tangela Prieto, [employer] POWERPLANT MECHANIC HELPER [Primary Care Provider] - (1) Hip fracture, left Qualifiers: Encounter type: initial encounter Fracture type: closed Qualified Code(s): S72.002A - Fracture of unspecified part of neck of left femur, initial encounter for closed fracture (2) HFrEF (heart failure with reduced ejection fraction) Qualifiers: Heart failure chronicity: chronic Qualified Code(s): I50.22 - Chronic [place] (congestive) heart failure (3) Atrial fibrillation Qualifiers: Atrial fibrillation type: chronic Qualified Code(s): I48.2 - Chronic atrial fibrillation (4) CAD (coronary artery disease) Qualifiers: Coronary Disease-Associated Artery/Lesion type: [place] artery [place] vs. transplanted heart: [place] heart Associated angina: without angina Qualified Code(s): I25.10 - Atherosclerotic heart disease of [place] coronary artery withou t angina pectoris (6) DM type 2 (diabetes mellitus, type 2) Qualifiers: Diabetes mellitus complication status: with kidney complications Diabetes mellitus complication detail: with chronic kidney disease Chronic kidney disease stage: stage 3 (moderate) Qualified Code(s): E11.22 - Type 2 diabetes mellitus with diabetic chronic kidney disease; N18.3 - Chronic kidney disease, stage 3 (moderate)
--- NOTE | 2019-06-20 12:32 | Event Note ---
Date of Encounter: 06/20/19 Time of Encounter: 12:10 PCR - POD#3 s/p left THR 06/17/19 (secondary to fracture) Patient seen at bedside, without complaints other than pain in hip, states she feels a little better today and hip pain is slowly improving day by day as well. A&O x 3 Afebrile, vital signs stable. Dressings roughly 60% saturated from posterior end. RNIKU drain was removed yesterday which could allow for more bleeding from the incision site and per nurse there seems to be a little more bleeding when daisy cevallos got up to work with therapy. Able to take a few steps to bedside chair which is more than she has done the last 3 days since surgery which could have only caused some bleeding from the incision as well. Dressings to be changed today. no calf tenderness to palpation, good dorsiflexion of foot, sensation intact distally. RINKU drainto left hip - 175ml total for 06/18, 40ml total for 06/19 then removed on 06/19 Labs reviewed. H/H - 9.4/29.5 - stable, received 2 units RBC transfusion 06/17 Pain control: adequate Participating in PT. All questions and concerns addressed. Educated on use of incentive spirometer. Encouraged ambulation and proper hydration. Patient educated on post-operative restrictions and post-operative care. Assessment and plan: Continue with postoperative care Discharge plan: ECF with medically cleared, still awaiting auth. INSTRUCTIONS for ECF CONTINUITY Opsite dressing, leave intact until first post-operative visit. If dressing becomes >50% saturated, contact office, remove dressing and place appropriate dressing in its place. Do not allow for dressing to get wet. Zipline/Angie in place, plan to remove at post-operative day #14-16. Total Joint Precautions x 6 weeks Apply cold therapy wrap 3-6x/day for 20 minutes at a time. Encourage ambulation throughout the day Use Incentive spirometer 10x/hour. Elevate affected extremity above heart as tolerated. Brace: Wear hip abductor brace at night x 6 weeks.
[2019-06-20] MEDS: *HR* OxyCODONE Immed Rel 5 MG TABLET PO PRN (17:30)
[2019-06-20] MEDS: Mirtazapine 15 MG TABLET PO SCH (20:55)
[2019-06-20] MEDS: Insulin DETEMIR 100 UNIT/ML X5UNITS SQ SCH (20:56)
--- NOTE | 2019-06-21 08:02 | Orthopedics Progress Note ---
Date of Encounter: 06/21/19 Time of Encounter: 08:01 Subjective Interval history: Patient was seen this morning doing well without complaints. Afebrile vital signs stable. Operative extremity: Neurovascularly intact Dressing clean dry and intact Calves nontender Assessment and plan: Continue with postoperative care Discharge when approved. Objective Vital signs: Vital Signs Temp Pulse Resp BP Pulse Ox 06/21/19 03:33 98.6 F 96 20 135/75 100 06/20/19 22:27 97.5 F L 82 20 134/79 99 06/20/19 18:45 98.6 F 108 21 132/81 100 06/20/19 15:32 98.9 F 93 14 139/63 100 06/20/19 11:29 97.9 F 89 18 124/72 100 Intake and Output 06/20/19 06/21/19 06/21/19 23:59 07:59 15:59 Intake Total 740 / 2035 500 / 500 Output Total 350 / 350 Balance 740 / 1385 150 / 150 Intake: IV Fluids 500 / 1500 Lactated Ringers 1,000 ML @ 100 500 / 1500 mls/hr IVC .Q10H [facility] Rx#: [id number] Oral 240 / 535 500 / 500 Output: Catheter 350 / 350 Other: Meal Dinner Percent of Meal Consumed 10% Weight 63.4 kg Blood Glucose* 172 Patient Weight 06/21/19 23:59 Weight 63.4 kg - Labs CBC & BMP: 06/20/19 06:02 06/20/19 06:02 Labs: Abnormal lab results RBC 3.09 M/mcL (3.82-4.97) L 06/20/19 06:02 Hgb 9.4 g/dL (11.5-15.4) L 06/20/19 06:02 Hct 29.5 % (35.3-44.9) L 06/20/19 06:02 MCV 105.1 fL (83.0-100.0) H 06/17/19 04:06 MCHC 29.8 g/dL (31.6-35.5) L 06/19/19 06:14 RDW 18.4 % (11.5-14.5) H 06/20/19 06:02 Plt Count 91 K/mcL (140-400) L 06/20/19 06:02 Immature Plt Fraction 6.4 % (1.1-6.1) H 06/19/19 06:14 PT 12.7 Seconds (9.4-12.1) H 06/16/19 17:37 Sodium 133 mEq/L (136-145) L 06/20/19 06:02 Potassium 5.6 mEq/L (3.5-5.1) H 06/17/19 04:06 Chloride 108 mEq/L (98-107) H 06/18/19 01:28 Carbon Dioxide 20 mEq/L (23-29) L 06/18/19 01:28 BUN 41 mg/dL (8-23) H 06/20/19 06:02 Creatinine 1.65 mg/dL (0.60-1.20) H 06/19/19 06:14 Est GFR ( Amer) 36 (> 60) L 06/19/19 06:14 Est GFR (Non-Af Amer) 50 (> 60) L 06/20/19 06:02 BUN/Creatinine Ratio 39 (6-26) H 06/20/19 06:02 Glucose 184 mg/dL (70-105) H 06/18/19 01:28 POC Glucose 172 mg/dL (70-99) H 06/20/19 20:53 Calculated Osmolality 302 (280-300) H 06/18/19 01:28 Calcium 8.3 mg/dL (8.6-10.3) L 06/20/19 06:02 Crossmatch See Detail 06/17/19 06:42 Consult Discharge Plan - Plan Referrals: Tangela Prieto, BANK BOSS [Primary Care Provider] -
[2019-06-21] MEDS: Insulin LISPRO 300 UNITS/3 ML VIAL SQ SCH ×3 (10:47→18:09)
[2019-06-21] MEDS: Cyanocobalamin (B-12) 1,000 MCG TABLET PO SCH (10:55)
[2019-06-21] MEDS: Aspirin Enteric Coated 81 MG Tablet PO SCH (10:56)
[2019-06-21] MEDS: *HR* Digoxin 0.125 MG TABLET PO SCH (10:56)
[2019-06-21] MEDS: Ascorbic Acid 500 MG TABLET PO SCH ×2 (10:56→18:09)
[2019-06-21] MEDS: Multivit/Ca/Min/Fe/FA 1 TAB TABLET PO SCH (10:56)
[2019-06-21] MEDS: Folic Acid 1 MG TABLET PO SCH (10:56)
[2019-06-21] MEDS ORDERED: Methylnaltrexone 12 MG/0.6 ML SYRINGE SQ ONE (12:21)
--- NOTE | 2019-06-21 13:18 | Event Note ---
Date of Encounter: 06/21/19 Time of Encounter: 12:00 continued slow drainage from incision since RINKU drain has been removed. recommend daily pressure dressing changes and wound cleansing with 4x4, abd pad and medipore tape for pressure. PCR - POD#4 s/p left THR 06/17/19 (secondary to fracture) Patient seen at bedside, without complaints other than pain in hip, states still bothering her A&O x 3 Afebrile, vital signs stable. Dressings roughly 20% saturated from posterior end. RINKU drain was removed 06/19. Per nurse drainage only occurs when walking with therapy. Able to take a few steps to bedside chair which is more than she has done the last 3 days since surgery which could have only caused some bleeding fr om the incision as well. Dressings to be changed today and switch to pressure dressing, no active drainage currently. no calf tenderness to palpation, good dorsiflexion of foot, sensation intact distally. RINKU drain to left hip - 175ml total for 06/18, 40ml total for 06/19 then removed on 06/19 Labs reviewed. H/H - 9.4/29.5 - stable, received 2 units RBC transfusion 06/17 Pain control: adequate Participating in PT. All questions and concerns addressed. Educated on use of incentive spirometer. Encouraged ambulation and proper hydration. Patient educated on post-operative restrictions and post-operative care. Assessment and plan: Continue with postoperative care Discharge plan: ECF with medically cleared, still awaiting auth. INSTRUCTIONS for ECF CONTINUITY Pressure dressings to be changed at least daily or more often as needed. If dressing becomes >50% saturated, contact office, remove dressing and place appropriate dressing in its place. Do not allow for dressing to get wet. Zipline/Chris in place, plan to remove at post-operative day #14-16. Total Joint Precautions x 6 weeks Apply cold therapy wrap 3-6x/day for 20 minutes at a time. Encourage ambulation throughout the day Use Incentive spirometer 10x/hour. Elevate affected extremity above heart as tolerated. Brace: Wear hip abductor brace at night x 6 weeks.
--- NOTE | 2019-06-21 14:15 | Internal Med Progress Note ---
Hospitalist Progress Note - Encounter Date of Encounter: 06/21/19 Time of Encounter: 10:00 - Subjective Interval History: No major events overnight. Patient was seen this a.m. sHe denied fever, chills or night sweats. sHe has no nausea, vomiting or abdominal pain. Patient denied chest pain, shortness of breath or palpitation. She did not have any bowel movement since admission. - Exam Vitals: Temp Pulse Resp BP Pulse Ox 98.3 F 101 16 148/91 100 06/21/19 12:06/21/19 12:06/21/19 12:06/21/19 12:06/21/19 12: Exam: General: Patient is alert, oriented 3. Mild distress Head: Atraumati. Eye: EOMI, PERRLA, no scleral icterus noted. ENT: Mucous membranes moist. Neck: Normal inspection, Respiratory: No respiratory distress, rhonchi, or wheezes noted. Cardiovascular: Regular rate and IRregular rhythm, GI: Soft, nondistended, normal bowel sounds. Extremities: LLE is shorter with mild internal rotation. pulses are intact. Neurological: Alert, oriented 3, no focal deficits. Strength is 4/5 in upper extremities Psychiatric: normal affect, normal mood. Skin: Dry, intact, warm. Normal color. No rashes. - Assessment and Plan (1) Hip fracture, left Current Visit: Yes Status: Resolved (2) HFrEF (heart failure with reduced ejection fraction) Current Visit: Yes Status: Chronic (3) Atrial fibrillation Current Visit: Yes Status: Chronic (4) CAD (coronary artery disease) Current Visit: Yes Status: Chronic (5) CKD (chronic kidney disease) stage 3, GFR 30-59 ml/min Current Visit: Yes Status: Chronic (6) DM type 2 (diabetes mellitus, type 2) Current Visit: Yes Status: Chronic (7) Severe protein-calorie malnutrition Current Visit: Yes Status: Acute - Summary of Assessment and Plan Summary of Assessment and Plan: Ms. Kang is a 89 year old female with history of chronic thrombocytopenia, A. fib not on anticoagulation, HFrEF EF 45%, CAD status post PCI 5, HTN, type II DM, iron deficiency anemia, CAD kidney stage III. Symptoms are managed as following. Left hip fracture: POD-4, S/P THR, orthopedic surgery is on board. Management as per them. PT/OT on board. On bowel regimen. Constipation: We will aggressive her bowel regimen and add milk of magnesia, was given 1 dose of Relistor. ERICA on CKD stage III: resolved. improved oral intake. T2DM: hold oral medications, on levemir LSSI, ACCU checks TIDAC. A.FIB: Rate controlled, on digoxin q48 hours. Not on AC. CAD S/P PCI: continue plavix/asa and statins. HFrEF: EF 45%, appears hypovloemic. 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 Anemia: Chronic, used to receive IV iron infusion as outpatient. Was given 2 units of blood preoperatively. Severe protein-calorie malnutrition: Dietitians is on board, continue Megace. dvt PPX: SCD - Time Spent with Patient Total time spent is greater than 50% in coordination of care (as documented) at patient's floor/unit and/or counseling patient: Plan of Care Discussed with: patient Internal Medicine: Result - Labs CBC & Chem 7: 06/20/19 06:02 06/20/19 06:02 - ABG Interpretation ABG results: PT/INR, D-dimer PT 12.7 Seconds (9.4-12.1) H 06/16/19 17:37 Consult Discharge Plan - Plan Referrals: Tangela Prieto [employer] [Primary Care Provider] - (1) Hip fracture, left Qualifiers: Encounter type: initial encounter Fracture type: closed Qualified Code(s): S72.002A - Fracture of unspecified part of neck of left femur, initial encounter for closed fracture (2) HFrEF (heart failure with reduced ejection fraction) Qualifiers: Heart failure chronicity: chronic Qualified Code(s): I50.22 - Chronic systolic (congestive) heart failure (3) Atrial fibrillation Qualifiers: Atrial fibrillation type: chronic Qualified Code(s): I48.2 - Chronic atrial fibrillation (4) CAD (coronary artery disease) Qualifiers: Coronary Disease-Associated Artery/Lesion type: [place] artery [place] vs. transplanted heart: [place] heart Associated angina: without angina Qualified Code(s): I25.10 - Atherosclerotic heart disease of [place] coronary artery without angina pectoris (6) DM type 2 (diabetes mellitus, type 2) Qualifiers: Diabetes mellitus complication status: with kidney complications Diabetes mellitus complication detail: with chronic kidney disease Chronic kidney disease stage: stage 3 (moderate) Qualified Code(s): E11.22 - Type 2 diabetes mellitus with diabetic chronic kidney disease; N18.3 - Chronic kidney disease, stage 3 (moderate)
[2019-06-21] MEDS: *HR* OxyCODONE Immed Rel 5 MG TABLET PO PRN (18:28)
[2019-06-21] MEDS: Mirtazapine 15 MG TABLET PO SCH (20:24)
[2019-06-21] MEDS ORDERED: Insulin DETEMIR 100 UNIT/ML X5UNITS SQ SCH (21:00)
[2019-06-21] MEDS ORDERED: MOM Conc 10 ML UD.LIQ PO SCH (21:00)
[2019-06-21] MEDS ORDERED: traZODone 50 MG TABLET PO SCH (21:00)
[2019-06-22] MEDS: HYDROcodone BIT/Homatropine 5 MG TABLET PO PRN (01:42)
[2019-06-22] MEDS: traMADol 50 MG TABLET PO PRN (05:28)
[2019-06-22 06:03] LABS: Hematocrit 28.9 % (35.3-44.9); Hemoglobin 9.1 g/dL (11.5-15.4); Mean Corpuscular HGB Conc 31.5 g/dL (31.6-35.5); Mean Corpuscular Hemoglobin 30.3 pg (28.0-33.3); Mean Corpuscular Volume 96.3 fL (83.0-100.0); Mean Platelet Volume 10.9 fL (9.4-12.4); Platelet Count 113 K/mcL (140-400); Red Cell Distribution Width 18.1 % (11.5-14.5); White Blood Count 4.5 K/mcL (4.3-11.1)
[2019-06-22 06:28] LABS: BUN/Creatinine Ratio 37 (6-26); Blood Urea Nitrogen 29 mg/dL (8-23); Calcium 8.5 mg/dL (8.6-10.3); Carbon Dioxide 26 mEq/L (23-29); Chloride 101 mEq/L (98-107); Glucose 180 mg/dL (70-105); Osmolality,Calculated 288 (280-300); Potassium 4.9 mEq/L (3.5-5.1); Sodium 134 mEq/L (136-145); eGFR For African Americans > 60 (> 60); eGFR For Non-African Americans > 60 (> 60)
[2019-06-22] MEDS: Ascorbic Acid 500 MG TABLET PO SCH (08:44)
[2019-06-22] MEDS: Multivit/Ca/Min/Fe/FA 1 TAB TABLET PO SCH (08:44)
[2019-06-22] MEDS: Cyanocobalamin (B-12) 1,000 MCG TABLET PO SCH (08:44)
[2019-06-22] MEDS: Folic Acid 1 MG TABLET PO SCH (08:44)
[2019-06-22] MEDS: Aspirin Enteric Coated 81 MG Tablet PO SCH (08:44)
[2019-06-22] MEDS: Insulin LISPRO 300 UNITS/3 ML VIAL SQ SCH ×2 (08:45→11:57)
[2019-06-22] MEDS ORDERED: Milk and Molasses Enema 200 ML RC ONE (10:27)
[2019-06-22] MEDS: *HR* OxyCODONE Immed Rel 5 MG TABLET PO PRN (13:55)
[2019-06-22] MEDS ORDERED: FLU Vac QV 19-20 (6Month+)/PF 0.5 ML SYRINGE IM ONE (14:44)
--- NOTE | 2019-06-22 14:52 | Discharge Summary ---
- NOTES TO OUTPATIENT PROVIDER Notes to Outpatient Provider: Patient was admitted for left hip fracture and underwent total hip replacement. Postoperative course was complicated by constipation which resolved with bowel regimen and enema. She also had Erica that resolved with IVF and holding [place]. Orders not resulted at time of discharge: Pending orders 06/19/19 10:17 Culture,Urine [RM] Routine Urinalysis reflex Microscopic [URIN] Routine Date of Encounter: 06/22/19 Time of Encounter: 13:00 - Discharge Diagnosis (1) Hip fracture, left Priority: Primary Status: Resolved Qualifiers: Encounter type: initial encounter Fracture type: closed Qualified Code(s): S72.002A - Fracture of unspecified part of neck of left femur, initial encounter for closed fracture (2) HFrEF (heart failure with reduced ejection fraction) Priority: Secondary Status: Chronic Qualifiers: Heart failure chronicity: chronic Qualified Code(s): I50.22 - Chronic systolic (congestive) heart failure (3) Atrial fibrillation Priority: Secondary Status: Chronic Qualifiers: Atrial fibrillation type: chronic Qualified Code(s): I48.2 - Chronic atrial fibrillation (4) CAD (coronary artery disease) Priority: Secondary Status: Chronic Qualifiers: Coronary Disease-Associated Artery/Lesion type: [place] artery [place] vs. transplanted heart: [place] heart Associated angina: without angina Qualified Code(s): I25.10 - Atherosclerotic heart disease of [place] coronary artery without angina pectoris (5) CKD (chronic kidney disease) stage 3, GFR 30-59 ml/min Priority: Secondary Status: Chronic (6) DM type 2 (diabetes mellitus, type 2) Priority: Secondary Status: Chronic Qualifiers: Diabetes mellitus complication status: with kidney complications Diabetes mellitus complication detail: with chronic kidney disease Chronic kidney disease stage: stage 3 (moderate) Qualified Code(s): E11.22 - Type 2 diabetes mellitus with diabetic chronic kidney disease; N18.3 - Chronic kidney disease, stage 3 (moderate) (7) Severe protein-calorie malnutrition Priority: Secondary Status: Acute Hospital course: Ms. Kang is a 89 year old female with history of chronic thrombocytopenia, A. fib not on anticoagulation, HFrEF EF 45%, CAD status post PCI 5, HTN, type II DM, iron deficiency anemia, CAD kidney stage III who was admitted to the hospital for left hip fracture and underwent total hip replacement by orthopedic surgery. Her postoperative course was completed by constipation relieved with bowel regimen and enema. She also had ERICA resolved with IV fluids. Patient participated in physical therapy and she will be discharged to rehabilitation is on the recommendation. She is a clinically stable for discharge. Discharge discussed with: patient - Time Spent with Patient Total time spent providing and/or coordinating discharge services: 50 minutes - Discharge Medications Prescriptions: New Docusate [Colace] 100 mg PO BID #60 capsule Atorvastatin [Lipitor] 40 mg PO HS tablet Megestrol Acetate [Megace] 40 mg PO DAILY #30 tablet Polyethylene Glycol 3350 [MiraLAX] 17 gm PO DAILY #30 powd.pack Cyanocobalamin (B-12) [Vitamin B12] 1,000 mcg PO DAILY tablet Continued Clopidogrel [Plavix] 75 mg PO DAILY Carvedilol [Coreg] 25 mg PO BID Folic Acid 1 mg PO DAILY #30 tablet Digoxin [Lanoxin] 0.125 mg PO Q48H Lisinopril 2.5 mg PO DAILY Aspirin Enteric Coated [Aspirin EC] 81 mg PO DAILY Glimepiride [Amaryl] 2 mg PO DAILY Nitroglycerin [Nitrostat] 0.4 mg SL Q5M PRN PRN Reason: Chest Pain Isosorbide MONOnitrate [Isosorbide Mononitrate ER] 120 mg PO DAILY Mirtazapine 7.5 mg PO HS Omeprazole 20 mg PO DAILY HYDROcodone/Acet 5/325 mg [[place] 5-325 mg] 1 tab PO BID PRN 5 Days #10 tab PRN Reason: Chest Pain Discontinued Potassium Chloride [Klor-Con] 20 meq PO DAILY Torsemide [Demadex] 40 mg PO DAILY 365 Days tablet Home Medications: Carvedilol [Coreg] 25 mg PO BID 01/25/16 [History] Clopidogrel [Plavix] 75 mg PO DAILY 01/25/16 [History] Folic Acid 1 mg PO DAILY #30 tablet 10/25/16 [Rx] Digoxin [Lanoxin] 0.125 mg PO Q48H 06/19/17 [History] Aspirin Enteric Coated [Aspirin EC] 81 mg PO DAILY 04/03/18 [History] Glimepiride [Amaryl] 2 mg PO DAILY 04/03/18 [History] Lisinopril 2.5 mg PO DAILY 04/03/18 [History] Nitroglycerin [Nitrostat] 0.4 mg SL Q5M PRN 04/03/18 [History] Isosorbide MONOnitrate [Isosorbide Mononitrate ER] 120 mg PO DAILY 06/17/19 [History] Mirtazapine 7.5 mg PO HS 06/17/19 [History] Omeprazole 20 mg PO DAILY 06/17/19 [History] Atorvastatin [Lipitor] 40 mg PO HS tablet 06/22/19 [Rx] Cyanocobalamin (B-12) [Vitamin B12] 1,000 mcg PO DAILY tablet 06/22/19 [Rx] Docusate [Colace] 100 mg PO BID #60 capsule 06/22/19 [Rx] HYDROcodone/Acet 5/325 mg [[place] 5-325 mg] 1 tab PO BID PRN 5 Days #10 tab 06/22/19 [Rx] Megestrol Acetate [Megace] 40 mg PO DAILY #30 tablet 06/22/19 [Rx] Polyethylene Glycol 3350 [MiraLAX] 17 gm PO DAILY #30 powd.pack 06/22/19 [Rx] Allergies/Adverse Reactions: Allergy/AdvReac Type Severity Reaction Status Date / Time cephalexin [From Keflex] AdvReac See Verified 03/25/19 11:12 Comments Date of admission: 06/16/19 17:08 Primary care physician: Tangela Prieto CNP Consults: 06/16/19 17:13 Consult to Orthopedic Surgery [CONS] Stat Consulting Provider: [facility] Reason for Consult: left hip fracture Call Completed: Yes 06/16/19 17:16 Consult to Nutrition [CONS] Routine Comment: Consulting Provider: NUTRITION Reason for Dietary Consult: MST Score Consult to Financial Sales Professional [CONS] Routine Reason for SW Consult: DISCHARGE PLANNING 06/17/19 20:55 Consult to Nurse Navigator [CONS] Routine Comment: ortho navigator Consult to Nutrition [CONS] Routine Comment: Consulting Provider: NUTRITION Reason for Dietary Consult: Other Other:: Proper nutrition to facilitate wound healing Consult to Occupational Therapy [CONS] Routine Comment: Evaluate, develop and implement POC Reason for Consult: total hip replacement Does patient have active BEDREST order?: No Is patient medically & hemodynamically stable?: Yes Consult to Physical Therapy [CONS] Routine Comment: Evaluate, develop and implement POC Reason for Consult: total hip replacement Does patient have active BEDREST order?: No Is patient medically & hemodynamically stable?: Yes Consult to Financial Sales Professional [CONS] Routine Reason for SW Consult: post op joint replacement RT Post Op Consult [CONS] Routine - Constitutional Vitals: Temp Pulse Resp BP Pulse Ox 98.6 F 84 16 129/77 98 06/22/19 11:21 06/22/19 11:21 06/22/19 11:21 06/22/19 11:21 06/22/19 11:21 Exam: General: Patient is alert, oriented 3. Mild distress Head: Atraumati. Eye: EOMI, PERRLA, no scleral icterus noted. ENT: Mucous membranes moist. Neck: Normal inspection, Respiratory: No respiratory distress, rhonchi, or wheezes noted. Cardiovascular: Regular rate and IRregular rhythm, GI: Soft, nondistended, normal bowel sounds. Extremities: No lower extremity swelling, pulses are intact, left hip dressing with no discharge. Neurological: Alert, oriented 3, no focal deficits. Strength is 4/5 in upper extremities Psychiatric: normal affect, normal mood. Skin: Dry, intact, warm. Normal color. No rashes. - Patient Status Disposition: Transfer SNF Condition: Good Functional capacity at discharge: uses cane/walker Overall status at discharge: patient is back to baseline - Discharge Instructions Instructions: Diabetes Mellitus Type 2 in Adults (DC) Follow Up With: Tangela Prieto CNP [Primary Care Provider] - Gentry Mujica MD [Partnered Physician] - - Diet and Activity Activity: as per physical therapy Diet: diabetic diet
--- NOTE | 2019-06-22 14:57 | Physician Discharge Referral ---
ExtendedCare Referral Info Transfer To: snf Provider in Charge after Transfer: PCP Institutional Level of Care: Skilled - Diagnosis (1) Hip fracture, left Priority: Primary Status: Resolved (2) HFrEF (heart failure with reduced ejection fraction) Priority: Secondary Status: Chronic (3) Atrial fibrillation Priority: Secondary Status: Chronic (4) CAD (coronary artery disease) Priority: Secondary Status: Chronic (5) CKD (chronic kidney disease) stage 3, GFR 30-59 ml/min Priority: Secondary Status: Chronic (6) DM type 2 (diabetes mellitus, type 2) Priority: Secondary Status: Chronic (7) Severe protein-calorie malnutrition Priority: Secondary Status: Acute Prognosis: Good - Transfer Medications Prescriptions: Docusate [Colace] 100 mg PO BID #60 capsule Prescription Printed Megestrol Acetate [Megace] 40 mg PO DAILY #30 tablet Prescription Printed Polyethylene Glycol 3350 [MiraLAX] 17 gm PO DAILY #30 powd.pack Prescription Printed HYDROcodone/Acet 5/325 mg [[place] 5-325 mg] 1 tab PO BID PRN 5 Days #10 tab PRN Reason: Chest Pain Prescription Printed Home Medications: Carvedilol [Coreg] 25 mg PO BID 01/25/16 [History] Clopidogrel [Plavix] 75 mg PO DAILY 01/25/16 [History] Folic Acid 1 mg PO DAILY #30 tablet 10/25/16 [Rx] Digoxin [Lanoxin] 0.125 mg PO Q48H 06/19/17 [History] Aspirin Enteric Coated [Aspirin EC] 81 mg PO DAILY 04/03/18 [History] Glimepiride [Amaryl] 2 mg PO DAILY 04/03/18 [History] Lisinopril 2.5 mg PO DAILY 04/03/18 [History] Nitroglycerin [Nitrostat] 0.4 mg SL Q5M PRN 04/03/18 [History] Isosorbide MONOnitrate [Isosorbide Mononitrate ER] 120 mg PO DAILY 06/17/19 [History] Mirtazapine 7.5 mg PO HS 06/17/19 [History] Omeprazole 20 mg PO DAILY 06/17/19 [History] Atorvastatin [Lipitor] 40 mg PO HS tablet 06/22/19 [Rx] Cyanocobalamin (B-12) [Vitamin B12] 1,000 mcg PO DAILY tablet 09/21/19 [Rx] Docusate [Colace] 100 mg PO BID #60 capsule 06/22/19 [Rx] HYDROcodone/Acet 5/325 mg [[place] 5-325 mg] 1 tab PO BID PRN 5 Days #10 tab 06/22/19 [Rx] Megestrol Acetate [Megace] 40 mg PO DAILY #30 tablet 06/22/19 [Rx] Polyethylene Glycol 3350 [MiraLAX] 17 gm PO DAILY #30 powd.pack 06/22/19 [Rx] Allergies/Adverse Reactions: Allergy/AdvReac Type Severity Reaction Status Date / Time cephalexin [From Keflex] AdvReac See Verified 03/25/19 11:12 Comments - Respiratory Orders Oxygen / L per min (2L), Other (Use Incentive spirometer 10x/hour.) Smoking Cessation: Smoking cessation has been advised. For more information, call the [employer] Tobacco Quit Line at 5-260-MQXL-NOW. - Advance Directives Code Status: Full Code - Mobility Orders Ambulate - Rehabiliation Orders Rehab Potential: Good Rehab Orders: Evaluation for Physical Therapy, Evaluation for Occupational Therapy - Treatments May check for fecal impaction rectally daily PRN List/Other: Pressure dressings to be changed at least daily or more often as needed. If dressing becomes >50% saturated, contact office, remove dressing and place appropriate dressing in its place. Do not allow for dressing to get wet. Zi pline/Chris in place, plan to remove at post-operative day #14-16. Total Joint Precautions x 6 weeks. Apply cold therapy wrap 3-6x/day for 20 minutes at a time. Encourage ambulation throughout the day. Use Incentive spirometer 10x/hour. Elevate affected extremity above heart as tolerated. Brace: Wear hip abductor brace at night x 6 weeks. - Diet Orders Cardiac CERTIFICATION: I certify that the transfer of the above named patient to an Extended Care Facility is necessary for the continuing treatment of the diagnosis listed. The above information is true and accurate reflection of patient's current condition. Confidential - Redisclosure prohibited without a patient's written consent.
[2019-06-22 15:41] VITALS: BP 151/80
--- NOTE | 2019-06-24 18:27 | Electrocardiograph Report ---
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
== END 2019-06-22 17:09 | DRG 956 ==
LOC: 3NENU
PROVIDERS: ADMIT Internal Medicine; ATTEND Internal Medicine

== ENCOUNTER 2021-01-14 01:09 | Inpatient (IN) ==
[2021-01-14] MEDS ORDERED: Melatonin 3 MG TABLET PO PRN (03:00)
[2021-01-14] MEDS ORDERED: Naloxone 0.4 MG/ML INJ IVP PRN (03:00)
[2021-01-14] MEDS ORDERED: Ondansetron 4 MG/2 ML VIAL IVP PRN (03:00)
[2021-01-14] MEDS ORDERED: Dextrose Gel 15 GM/37.5 ML TUBE PO PRN ×2 (03:10)
[2021-01-14] MEDS ORDERED: *HR* Dextrose 50 % in Water (Vial) 50 ML VIAL IVP PRN (03:10)
[2021-01-14] MEDS ORDERED: D5% in Water 1,000 ML IVC PRN (03:10)
[2021-01-14 04:40] LABS: ABG Base Excess 4 mEq/L (-2 to 3); ABG HCO3 35 mEq/L (21-27); ABG Oxygen Saturation 100 % (95-98); ABG PCO2 93 mmHg (35-45); ABG PH 7.19 pH Units (7.32-7.45); ABG PO2 233 mmHg (85-104); ABG TCO2 38 mEq/L (20-26); Blood Gas Modality AVAPS; Blood Gas VT 450 cc
[2021-01-14 05:06] LABS: Basophils % 0.3 %; Eosinophils % 0.3 %; Hematocrit 39.1 % (35.3-44.9); Hemoglobin 11.5 g/dL (11.5-15.4); Immature Granulocytes % 0.5 % (0-4); Lymphocytes # 1.2 K/mcL (0.6-4.6); Lymphocytes % 18.7 %; Mean Corpuscular HGB Conc 29.4 g/dL (31.6-35.5); Mean Corpuscular Hemoglobin 32.2 pg (28.0-33.3); Mean Corpuscular Volume 109.5 fL (83.0-100.0); Mean Platelet Volume 9.5 fL (9.4-12.4); Monocytes # 0.4 K/mcL (0.0-1.3); Monocytes % 6.1 %; Neutrophils # 4.6 K/mcL (1.6-8.9); Platelet Count 186 K/mcL (140-400); Red Blood Count 3.57 M/mcL (3.82-4.97); Red Cell Distribution Width 17.5 % (11.5-14.5); Segmented Neutrophils % 74.1 %; White Blood Count 6.3 K/mcL (4.3-11.1)
[2021-01-14 05:09] LABS: INR 1.1
[2021-01-14 05:16] LABS: Alanine Aminotransferase 5 Units/L (7-52); Albumin 3.4 g/dL (3.5-5.7); Alkaline Phosphatase 110 Units/L (34-104); Aspartate Amino Transferase 14 Units/L (13-39); BUN/Creatinine Ratio 35 (6-26); Bilirubin,Total 0.6 mg/dL (0.3-1.0); Blood Urea Nitrogen 22 mg/dL (8-23); Calcium 9.2 mg/dL (8.6-10.3); Carbon Dioxide 28 mEq/L (23-29); Chloride 105 mEq/L (98-107); Chol/HDL Ratio 2.2 (0-4.9); Cholesterol 90 mg/dL (< 200); Globulin 3.3 g/dL (2.4-3.5); Glucose 130 mg/dL (70-105); HDL Cholesterol 41 mg/dL (40-59); LDL Cholesterol,Calculated 28 mg/dL (< 100); Osmolality,Calculated 291 (280-300); Phosphorous 3.6 mg/dL (2.7-4.5); Potassium 4.8 mEq/L (3.5-5.1); Sodium 138 mEq/L (136-145); Total Protein 6.7 g/dL (6.4-8.9); Triglycerides 107 mg/dL (< 150); eGFR For African Americans > 60 (> 60); eGFR For Non-African Americans > 60 (> 60)
[2021-01-14] MEDS ORDERED: Insulin LISPRO 300 UNITS/3 ML VIAL SUBQ SCH (06:00)
[2021-01-14] MEDS ORDERED: Furosemide 40 MG/4 ML VIAL IVP SCH (08:00)
[2021-01-14] MEDS ORDERED: cefTRIAXone 1,000 MG in Water for inj. (sterile) 10 ML IVP SCH (09:00)
[2021-01-14] MEDS ORDERED: *HR* LORazepam Oral Conc 2 MG/ML SL PRN ×2 (10:30→11:06)
[2021-01-14] MEDS ORDERED: Haloperidol Oral Conc 10 MG/5 ML UDC PO PRN (10:31)
[2021-01-14] MEDS ORDERED: Atropine 1% Opth Drops 100 DROP/5 ML BOTTLE SL PRN (12:45)
[2021-01-14] MEDS ORDERED: Insulin DETEMIR 100 UNIT/ML X5UNITS SUBQ SCH (21:00)
[2021-01-14 23:11] VITALS: BP 130/58
== END 2021-01-15 03:28 | disposition expired | DRG 291 ==
LOC: 2NNU → SUATTDRO 02:34 → 2ANU 12:16
PROVIDERS: ADMIT Family Medicine; ATTEND Internal Medicine